=== PATIENT | female | born 1960 | race Caucasian/White ===

== ENCOUNTER 2019-07-20 13:41 | Emergency (ER) | payer MEDICAID, SELFPAY ==
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
[2019-07-20 13:52] VITALS: BP 122/82; PULSE 103; RESP 18; TEMP 37.1; O2SAT 94; BMI 22.8
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
[2019-07-20 14:09] VITALS: RESP 18; O2SAT 93
[2019-07-20] MEDS: morphine 4 mg/mL SDV 1 mL IVP (14:09)
--- NOTE | 2019-07-20 15:45 | PC.NURSE ---
pt ambulated to bathroom with walker assist, pt tolerated fair.
[2019-07-20 16:15] VITALS: BP 158/90; PULSE 72; RESP 17; O2SAT 95
== END 2019-07-20 16:16 | disposition home or self-care (01) ==
PROVIDERS: Emergency Provider Emergency Medicine; Family Provider Family Medicine
DX: S13.4XXA Sprain of ligaments of cervical spine, initial encounter (principal); S29.012A Strain of muscle and tendon of back wall of thorax, initial encounter; V57.5XXA Driver of pick-up truck or van injured in collision with fixed or stationary object in traffic accident, initial encounter; J44.9 Chronic obstructive pulmonary disease, unspecified; E78.5 Hyperlipidemia, unspecified; E11.42 Type 2 diabetes mellitus with diabetic polyneuropathy; Z86.73 Personal history of transient ischemic attack (TIA), and cerebral infarction without residual deficits
CPT/HCPCS: 71046; 72072; 72100; 72170; 96374; 99282; 99284; J2270

== ENCOUNTER 2020-12-11 12:23 | Outpatient (CLI) | payer MEDICAID, SELFPAY ==
--- NOTE | 2020-12-11 12:32 | XRR_ITS ---
PROCEDURE INFORMATION: Exam: XR Abdomen Exam date and time: 12/11/2020 12:32 PM Age: 60 years old Clinical indication: Condition or disease; Kidney or ureter condition; Calculus (stone) in ureter; Prior surgery; Surgery type: Hysterectomy; Additional info: Ureteral stone TECHNIQUE: Imaging protocol: XR of the abdomen. Views: Frontal supine view of the abdomen. 1 View. COMPARISON: CT abdomen pelvis w con* [id number] 12/06/2020 12:05 AM FINDINGS: Gastrointestinal tract: Normal. No bowel dilation. Status post cholecystectomy. Colonic fecal stasis is seen There is a circumscribed density is seen in the projection of the right kidney measuring 11 mm x 5 mm it is unclear if this is within the right kidney or the bowel. Bones/joints: Unremarkable. XR/XR KUB 05597 IMPRESSION: 1. No acute findings. 2. There is significant colonic fecal stasis. 3. Circumscribed right renal stone or density within bowel. 4. Status post cholecystectomy
== END 2020-12-11 12:24 | disposition home or self-care (01) ==
PROVIDERS: PCP Pediatrics; Visit Provider Nurse Practitioner Family
DX: N20.1 Calculus of ureter (principal); Z90.49 Acquired absence of other specified parts of digestive tract
CPT/HCPCS: 74018; 81003

== ENCOUNTER 2020-12-19 15:15 | Outpatient (CLI) | payer MEDICAID, SELFPAY ==
--- NOTE | 2020-12-19 15:18 | XRR_ITS ---
PROCEDURE INFORMATION: Exam: XR Abdomen Exam date and time: 12/19/2020 3:18 PM Age: 60 years old Clinical indication: Condition or disease; Kidney or ureter condition; Calculus (stone) in ureter; Additional info: Ureteral stone left TECHNIQUE: Imaging protocol: XR of the abdomen. Views: Frontal supine view of the abdomen. 1 View. COMPARISON: CR XR KUB 97318 12/11/2020 12:47 PM FINDINGS: Tubes, catheters and devices: Surgical clips related to cholecystectomy are noted the right upper quadrant. Gastrointestinal tract: Nonobstructive intestinal gas pattern demonstrated. Moderate retained stool throughout the colon. Organs: 10 mm right upper quadrant calcification, likely representing a renal calculus. Vasculature: Lower pelvic calcifications are noted, likely representing phleboliths. Bones/joints: Mild scoliosis and degeneration of the lumbar spine. No acute osseous abnormality. XR/XR KUB 01607 IMPRESSION: 1. 10 mm right upper quadrant calcification, likely representing a renal calculus. This is unchanged from 12/11/2020. 2. Moderate retained stool throughout the colon. No acute abnormality demonstrated. 3. There is no interval change from the prior examination.
== END 2020-12-19 15:16 | disposition home or self-care (01) ==
PROVIDERS: PCP Pediatrics; Visit Provider Urology
DX: N20.1 Calculus of ureter (principal)
CPT/HCPCS: 74018; 81003

== ENCOUNTER 2021-04-18 13:34 | Outpatient (CLI) | payer MEDICAID, SELFPAY ==
--- NOTE | 2021-04-18 13:42 | XR_ITS ---
WS: [id number] Exam: XR KUB [id number] Date/Time of Exam: 04/18/2021 1:42 PM Reason For Exam: URETERAL CALCULUS Comparison 12/19/2020. 1 cm calcification superimposes the lower pole the right kidney and may represent a renal stone. This is unchanged in location. No bowel obstruction or free air. Signs of prior cholecystectomy. Moderate amount of stool in the colon. Nonspecific bilateral pelvic calcifications noted. Old bilateral pelvi c fractures. XR/XR KUB 00020 IMPRESSION: 1. 1 cm calcification superimposes the lower pole the right kidney and may repr esent a renal stone. It is unchanged in appearance. 2. No acute abdominal process. Additional nonacute findings as above.
== END 2021-04-18 13:35 | disposition home or self-care (01) ==
LOC: RAD 13:36
PROVIDERS: Visit Provider Urology
DX: N20.1 Calculus of ureter (principal); N20.0 Calculus of kidney
CPT/HCPCS: 74018; 81003; 87086

== ENCOUNTER 2021-05-15 15:13 | Outpatient (CLI) | payer MEDICAID, SELFPAY ==
--- NOTE | 2021-05-15 15:00 | XRR_ITS ---
PROCEDURE INFORMATION: Exam: XR Abdomen Exam date and time: 05/15/2021 3:00 PM Age: 61 years old Clinical indication: Condition or disease; Other: Nephrolithiasis; Prior surgery; Surgery type: Gb TECHNIQUE: Imaging protocol: XR of the abdomen. Views: Frontal supine view of the abdomen. 1 View. COMPARISON: CR XR KUB 10458 04/18/2021 1:54 PM FINDINGS: Gastrointestinal tract: Normal. No bowel dilation. Vasculature: 10 mm calcification overlying the right kidney. No change from prior x-rays. Calcifications in the pelvis are probably phleboliths and are unchanged from prior x-ray. No additional calculi. Bones/joints: Unremarkable. XR/XR KUB 80780 IMPRESSION: 10 mm Right renal calculus unchanged from prior x-ray Radiation Dose CTDIVOL = (mGy): DLP = (mGy-cm)
== END 2021-05-15 15:14 | disposition home or self-care (01) ==
LOC: RAD 15:14
PROVIDERS: PCP Family Medicine; Visit Provider Urology
DX: N20.0 Calculus of kidney (principal)
CPT/HCPCS: 74018; 81003

== ENCOUNTER → 2021-07-17 16:57 | Outpatient (BNVA) | payer MEDICAID, SELFPAY | PROVIDERS: PCP Family Medicine; Visit Provider Urology | DX: N39.41 Urge incontinence (principal); N20.0 Calculus of kidney; R39.198 Other difficulties with micturition; N30.80 Other cystitis without hematuria | CPT/HCPCS: 81003; 87077; 87086; 87184 ==

== ENCOUNTER 2021-10-16 14:35 | Outpatient (CLI) | payer MEDICAID, SELFPAY ==
--- NOTE | 2021-10-16 14:55 | XR_ITS ---
WS: [id number] KUB, AP view, 10/16/2021 Clinical Data: NEPHROLITHIASIS Comparison: KUB, 05/15/2021. Findings: No abnormal intraabdominal masses are seen. There is no dilatated small bowel or evidence of obstruct ion. There is a 1.0 cm calcification to the right of the L2-L3 disc which may be in the right kidney. No left renal calcifications are seen. There are clips in the right upper quadrant from a cholecystec faye. There are phleboliths in the left side of the true pelvis. XR/XR KUB 54654 Impression: Right renal calculus unchanged.
== END 2021-10-16 14:36 | disposition home or self-care (01) ==
LOC: RAD 14:37
PROVIDERS: PCP Family Medicine; Visit Provider Urology
DX: N20.0 Calculus of kidney (principal)
CPT/HCPCS: 74018; 81003

== ENCOUNTER 2021-12-20 08:23 | Emergency (ER) | payer MEDICAID, SELFPAY ==
[2021-12-20 08:29] VITALS: BP 147/91; PULSE 118; RESP 20; TEMP 37.1; O2SAT 98; BMI 24.7
--- NOTE | 2021-12-20 08:56 | CT_ITS ---
WS: [id number] CT ANGIOGRAM CEREBRAL AND CAROTID ARTERIES HISTORY: TIA TECHNIQUE: CT angiogram is performed of the carotid and cerebral arteries. During arterial injection imaging is obtained from the skull vertex to the aortic arch in 1.25 mm imaging. Coronal and sagittal reformats are submitted. Additional multi planar reformats of the carotid and cerebral arteries are submitted, MIP imaging also reviewed. NASCET criteria utilized. All CT scans at [facility] at least one of these dose optimization techniques: automated exposure control; mA and/or kV adjust ment per patient size (includes targeted exams where dose is matched to clinical indication); or iter ative reconstruction. CONTRAST: Omnipaque 350; 85 mL IV. DLP: 1911.49 mGy.cm COMPARISON: None available. Carotid Angiogram: Right carotid: Common carotid artery: Arises normally from the innominate artery. No significant plaque or stenosis. Internal carotid artery: No plaque or stenosis. External carotid artery: Patent. Left carotid: Common carotid artery: Arises normally from the base of the innominate. No significant plaque or sten osis. Internal carotid artery: No plaque or stenosis. External carotid artery: Patent. Right vertebral artery: Unremarkable. Left vertebral artery: Unremarkable. Arises normally from the subclavian artery. Subclavian arteries: No stenosis or significant abnormality. Upper thorax: Mild hyperexpansion. No mass or pneumonia. Thyroid gland: Normal. Osseous structures: Straightening and reversal the normal cervical lordosis. C3 anterolisthesis by 4 mm. Multilevel facet joint arthritis throughout the lumbar cervical spine. Spine CEREBRAL ANGIOGRAM: Intracranial vertebral arteries: Normal with no significant atherosclerosis. Basilar artery: No significant stenosis or occlusion. No aneurysm. Intracranial Internal carotid arteries: Demonstrates no significant stenosis or plaque. Middle cerebral arteries: Normal. Anterior cerebral arteries and ACOM: Normal. Posterior cerebral arteries and PCOM's: Normal. Dominant RIGHT transverse sinus with arachnoid granulations. Small caliber but patent LEFT transverse sinus. Mastoid air cells: Normal. Paranasal sinuses: Normal. Calvarium: Normal. CT/CT angio headneck* [id number]/[id number] IMPRESSION: 1. Normal carotid arteries. 2. Unremarkable [place].
--- NOTE | 2021-12-20 08:56 | ECG_ITS ---
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 Measurements Intervals [place] Rate: 100 P: 55 HI: 126 QRS: 10 QRSD: 88 T: 58 QT: 353 QTc: 455 Interpretive Statements SINUS TACHYCARDIA ABNORMAL RHYTHM ECG Compared to ECG 01/08/2019 18:20:57 T-wave abnormality no longer present Electronically Signed On 12-20-2021 18:55:15 CDT by Harsh Santoyo M.D. [email or web address]
--- NOTE | 2021-12-20 08:56 | CT_ITS ---
WS: [id number] CT HEAD NONCONTRAST HISTORY: TIA/ CVA TECHNIQUE: Contiguous axial imaging performed through the brain in 2.5 mm imaging. Bone and soft tiss ue windows. Sagittal and coronal reformats reviewed. All CT scans at [facility] use at least one of these dose optimization techniques: automated exposure control; mA and/or kV adjustment per pa tient size (includes targeted exams where dose is matched to clinical indication); or iterative recon struction. DLP: 682.77 mGy.cm COMPARISON: 04/12/2016 No acute intracranial hemorrhage, midline shift or mass effect. Mild atrophy. There are patchy areas of decreased attenuation throughout the white matter. There are a few additional areas at the vidal-white matter junction of the lower attenuation. These are noted bi lateral in the frontal and parietal lobes. No prior infarct. Ventricles: Normal size with no hydrocephalus. No inferior displacement of cerebellar tonsils. Paranasal sinuses: As visualized are clear. Mastoid air cells: Well pneumatized. Calvarium and scalp: Skull is intact with no soft tissue edema or swelling. CT/CT head wo con* [id number] IMPRESSION: 1. No acute intracranial hemorrhage or edema. 2. Progression of small vessel ischemic changes. Numerous focal patchy areas o f low signal at the vidal-white matter junction in the frontal and parietal lobe s. Significant progression since 2015. Suggest follow-up MRI brain with and wit hout contrast for further evaluation. This all may be related to advancing smal l vessel ischemic disease. Similar changes can be seen with hypertension, migra linda or demyelinating disease and less likely metastatic disease. Please note t here were no enhancing lesions noted on the CT angiogram performed on 12/20/2021 .
--- NOTE | 2021-12-20 08:56 | XR_ITS ---
WS: [id number] XR chest 1V portable [id number] REASON FOR EXAM: dyspnea/cough FINDINGS: Chest is unchanged compared to 07/20/2019. Moderate tortuosity and ectasia thoracic aorta without aneurysmal dilatation. Normal heart size. No acute pulmonary parenchymal or pleural abnormality. Bilateral old healed rib fractures. Moderate degenerative spondylosis in the mid and lower thoracic s pine. XR/XR chest 1V portable [id number] IMPRESSION: No acute chest abnormality.
--- NOTE | 2021-12-20 09:00 | ED_ITS ---
HPI - Neuro Symptoms/Deficit General: Chief Complaint: Neuro Symptoms/Deficit Stated Complaint: slurring speech, left weakness @ 1 am Time Seen by Provider: 12/20/21 08:32 Source: patient Mode of arrival: ambulatory Limitations: no limitations History of Present Illness: 61-year-old female presents emergency room complaining of slurring of speech generalized weakness. began around 1 AM this morning she reports it comes and goes. During the course of history it varied drastically from being able to answer questions follow commands without any difficulty to being almost unresponsive at times however when I asked her to raise her arms to evaluate for pronator drift she raised both arms slowly was able to hold him still prior to that she had been moving her arms around while talking bilaterally without any restrictions. She is also complaining of chest pain and then near the end of the history taking she states she had been vomiting blood last week she reports to being fairly large amount but otherwise cannot quantify it. She is not on any anticoagulants. Her review of systems was essentially gould positive. Onset (ago): hour(s) Last Observed Normal: 01:00 Location: speech History of same: No Severity: mild Quality: weak Relieving factors: none Exacerbating factors: none Context: sudden onset Associated symptoms: Reports chest pain, headache(s), malaise, nausea, vertigo and vomiting; Deny cough, diaphoresis, fevers/chills, anorexia, seizures, short of breath, syncope, tingling or weakness Treatments Prior to Arrival: none Review of Systems Const: Reports: fatigue and malaise; Denies: fever(s), chills or diaphoresis ENMT: Reports: throat pain Card: Reports: chest pain and palpitations; Denies: edema, swelling of feet/ankles or syncope Resp: Reports: dyspnea, non-productive cough and wheezing GI: Reports: abdominal pain, nausea, vomiting and hematemesis : Denies: flank pain, difficulty voiding, dysuria, urinary frequency or urinary urgency Musc: Reports: neck pain and back pain Neuro: Reports: headache(s), numbness in extremities, weakness in extremities, sensory changes, difficulty walking and vertigo [facility] ED PFSH: Medical History COPD (chronic obstructive pulmonary disease) Cystitis cystica Diabetes Hypercholesterolemia Hyperlipidemia Lung disease Nephrolithiasis Peripheral neuropathy TIA (transient ischemic attack) Ureterolithiasis Urgency incontinence Surgical History History of cholecystectomy History of hysterectomy History of knee surgery Family History Mother Lung cancer Ovarian cancer Father Prostate cancer Stroke Social History Smoking and tobacco status: never smoked Alcohol intake: never Marital status: Current occupational status: disabled NIH stroke score NIHSS: Level Of Consciousness - 1a: 0 Level Of Consciousness Questions - 1b: Both Correct Level Of Consciousness Commands - 1c: Both Correct Best Gaze - 2: Normal Visual Nam - 3: No Visual Loss Facial Palsy - 4: Normal Motor Arm Right - 5: No Drift Motor Arm Left - 5: No Drift Motor Leg Right - 6: No Drift Motor Leg Left - 6: No Drift Limb Ataxia - 7: Absent Sensory - 8: Normal Best Language - 9: No Aphasia Dysarthia - 10: Normal Extinction And Inattention - 11: 0 Score: Total Score: 0 Physical Exam Const: GENERAL APPEARANCE: cooperative and comfortable ORIENTATION/CONSCIOUSNESS: Yes awake, Yes oriented to person, Yes oriented to place and Yes oriented to time HENMT: COMMON NORMALS: normocephalic, atraumatic and hearing grossly normal bilaterally HEAD & SCALP: normocephalic and atraumatic Neck/C-Spine: COMMON NORMALS: no JVD Lymph: LYMPHATIC: no lymphadenopathy noted and no lymphedema noted Resp: COMMON NORMALS: normal respiratory effort, No retractions, No use of accessory muscles and clear to auscultation bilaterally AUSCULTATION: clear to auscultation bilaterally Cardio: COMMON NORMALS: no JVD, regular rate, regular rhythm and No murmurs present (Cardio) RATE: regular rate RHYTHM: regular rhythm GI: COMMON NORMALS: Soft to palpation and No hepatosplenomegaly present AUSCULTATION: Yes normoactive bowel sounds PALPATION: Yes Soft to palpation, No Tenderness to palpation present (GI), No Guarding due to palpation present (GI) and Yes No hepatosplenomegaly present Extremity: COMMON NORMALS: normal to inspection, capillary refill normal, no clubbing, cyanosis or edema, no calf tenderness and no pedal edema Neuro: SENSORIUM/ORIENTATION: Yes oriented to person, Yes oriented to place and Yes oriented to time OTHER: Exam is inconsistent. At 1 point on target patient to use both arms she has full symmetrical use of facial muscles and no alteration in sensation when we start to focus on more specific questions regarding the timing of her symptoms deficit she transitions here arrows. Or open her eyes states she can barely move her arms or legs bilateral but when asked to sit up she is able to reposition herself and pull her self to a full sitting position without any hesitation including use her legs to reposition her within the bed. At the end of history taking she is able to vocalize again without any slurring of words about having vomited blood. Skin: COMMON NORMALS: no rashes or lesions noted GENERAL SKIN EXAM: no rashes or lesions noted Course Vital Signs: Vital signs: Vital Signs Temperature 98.7 F 12/20/21 08:29 Pulse Rate 75 12/20/21 12:46 Respiratory Rate 20 H 12/20/21 12:46 Blood Pressure 104/72 12/20/21 12:46 Pulse Oximetry 95 12/20/21 12:46 MDM - Neuro Symptoms/Deficit Medical Decision Making Her symptoms are all resolved at this point, wax and wane are difficult to really track her score at various times in the same setting she did complete change in symptoms very rapidly. Work-up otherwise negative I am going to start her on aspirin and Plavix we will also put her on statin and set her up for an outpatient MRI and follow-up with neurology Medical Records I reviewed the patient's medical records. Lab Data I reviewed the patient's lab results. : 12/20/21 09:15 12/20/21 09:15 Radiology Impressions Chest X-Ray 12/20/21 08:56 IMPRESSION: No acute chest abnormality. Head CT 12/20/21 08:56 IMPRESSION: 1. No acute intracranial hemorrhage or edema. 2. Progression of small vessel ischemic changes. Numerous focal patchy areas of low signal at the vidal-white matter junction in the frontal and parietal lobes. Significant progression since 2016. Suggest follow-up MRI brain with and without contrast for further evaluation. This all may be related to advancing small vessel ischemic disease. Similar changes can be seen with hypertension, migraines or demyelinating disease and less likely metastatic disease. Please note there were no enhancing lesions noted on the CT angiogram performed on 12/20/2021. Head/Neck CTA 12/20/21 08:56 IMPRESSION: 1. Normal carotid arteries. 2. Unremarkable [place]. Laboratory Results WBC 8.2 10^3/uL (4.0-10.0) 12/20/21 09:15 RBC 4.86 10^6/uL (4.1-5.3) 12/20/21 09:15 Hgb 13.9 g/dL (11.5-15.3) 12/20/21 09:15 Hct 41.7 % (37.0-47.0) 12/20/21 09:15 MCV 85.8 fl (81-99) 12/20/21 09:15 MCH 28.6 pg (28.0-34.0) 12/20/21 09:15 MCHC 33.3 g/dL (30.0-36.0) 12/20/21 09:15 RDW 13.3 % (12.1-15.1) 12/20/21 09:15 Plt Count 295 10^3/cmm (130-400) 12/20/21 09:15 MPV 10.3 fL (7.4-10.4) 12/20/21 09:15 Neut % (Auto) 61.3 % 12/20/21 09:15 Lymph % (Auto) 27.5 % 12/20/21 09:15 Gem % (Auto) 8.8 % 12/20/21 09:15 Eos % (Auto) 1.2 % 12/20/21 09:15 Baso % (Auto) 0.5 % 12/20/21 09:15 Neut # (Auto) 5.00 10^3/uL (1.8-7.7) 12/20/21 09:15 Lymph # (Auto) 2.2 10^3/uL (0.8-4.8) 12/20/21 09:15 Gem # (Auto) 0.7 10^3/uL (0.2-0.9) 12/20/21 09:15 Eos # (Auto) 0.1 10^3/uL (0.0-0.8) 12/20/21 09:15 Baso # (Auto) 0.0 10^3/uL (0.0-0.1) 12/20/21 09:15 Nucleated RBC % (auto) 0 % 12/20/21 09:15 Nucleated RBCs # 0.0 /100WBC 12/20/21 09:15 Sodium 139 mmol/L (136-145) 12/20/21 09:15 Potassium 4.3 mmol/L (3.5-5.1) 12/20/21 09:15 Chloride 99 mmol/L (98-107) 12/20/21 09:15 Carbon Dioxide 25 mmol/L (22-29) 12/20/21 09:15 Anion Gap 19.3 (5-19) H 12/20/21 09:15 BUN 13 mg/dL (8-23) 12/20/21 09:15 Creatinine 0.8 mg/dL (0.5-0.9) 12/20/21 09:15 GFR Calculation 72.9 mL/min (90-130) L 12/20/21 09:15 Glucose 153 mg/dL (65-115) H 12/20/21 09:15 Calculated Osmolality 291 mOsm/kg (285-295) 12/20/21 09:15 Calcium 9.2 mg/dL (8.5-10.5) 12/20/21 09:15 Total Bilirubin 0.6 mg/dL (0.15-1.2) 12/20/21 09:15 AST 23 U/L (0-32) 12/20/21 09:15 ALT 24 U/L (0-33) 12/20/21 09:15 Alkaline Phosphatase 150 IU/L (35-105) H 12/20/21 09:15 Creatine Kinase 98 U/L (26-192) 12/20/21 09:15 Troponin T Baseline 7 ng/L (0-10) 12/20/21 09:15 Troponin T 120 Minute 7.96 ng/L (0-10) 12/20/21 11:18 Delta Troponin T -0.82 ABS# (0-10) L 12/20/21 11:18 Total Protein 7.3 g/dL (6.6-8.7) 12/20/21 09:15 Albumin 4.6 g/dL (3.5-5.2) 12/20/21 09:15 Globulin 2.7 g/dL (1.3-4.6) 12/20/21 09:15 Urine Color Yellow (Yellow) 12/20/21 09:55 Urine Appearance Hazy (CLEAR) A 12/20/21 09:55 Urine pH 6 (5-7) 12/20/21 09:55 Ur Specific Golden 1.015 (1.005-1.030) 12/20/21 09:55 Urine Protein Neg (Negative) 12/20/21 09:55 Urine Glucose (UA) Norm (Normal) 12/20/21 09:55 Urine Ketones Negative (Negative) 12/20/21 09:55 Urine Blood Neg (Negative) 12/20/21 09:55 Urine Nitrate Negative (Negative) 12/20/21 09:55 Urine Bilirubin Neg (Negative) 12/20/21 09:55 Urine Urobilinogen Norm mg/dL (Negative) 12/20/21 09:55 Ur Leukocyte Esterase 1+ (Negative) H 12/20/21 09:55 Urine RBC 0-4 /hpf (0-2) H 12/20/21 09:55 Urine WBC 0-4 /hpf (0-5) H 12/20/21 09:55 Ur Squamous Epith Cells 10-15 /hpf (0-5) H 12/20/21 09:55 Ur Renal Epithelial Cell Associate Vice President 12/20/21 09:55 Amorphous Sediment Not Reportable 12/20/21 09:55 Urine Bacteria 1+ /hpf (NONE) H 12/20/21 09:55 Discharge Plan Discharge Patient Disposition: Home Clinical Impression: Transient cerebral ischemia, Atypical chest pain, HTN (hypertension) Condition: Stable Prescriptions: New atorvastatin 40 mg tablet 40 mg PO DAILY Qty: 30 0RF clopidogrel 75 mg tablet 75 mg PO DAILY Qty: 30 0RF aspirin 81 mg tablet,delayed release (DR/EC) 81 mg PO DAILY Qty: 30 0RF No Action simvastatin 5 mg tablet 5 mg PO DAILY 0RF gabapentin 600 mg tablet 600 mg PO DAILY 0RF omeprazole 10 mg capsule,delayed release(DR/EC) 10 mg PO BID 0RF All Day Allergy (cetirizine) 10 mg capsule 10 mg PO DAILY PRN (Reason: Allergy Symptoms) 0RF budesonide-formoterol [Symbicort] 160-4.5 mcg/actuation HFA aerosol inhaler 2 puff inhalation Q12H 0RF fluticasone propionate 50 mcg/actuation spray,suspension 1 spray intranasal DAILY 0RF Rx Instructions: administer into each nostril glimepiride 4 mg tablet 4 mg PO BID 0RF fenofibrate nanocrystallized 145 mg tablet 145 mg PO DAILY 0RF sertraline 100 mg tablet 100 mg PO DAILY 0RF atenolol 50 mg tablet 25 mg PO DAILY 0RF sulfamethoxazole-trimethoprim 800-160 mg tablet 1 tab PO BID Qty: 60 2RF Rx Instructions: TAKE SMZ/TMP INSTEAD OF CEFUROXIME zolpidem 10 mg tablet 10 mg PO BEDTIME 0RF tamsulosin 0.4 mg capsule 0.4 mg PO DAILY 0RF Discharge Orders: Discharge ED (Routine); Ordered 12/20/21 Ordered By: Bandar Lee Referrals: Pinky Acosta MD [Primary Care Provider] - Discharge Diet: Usual diet Discharge Activity: Increase activity as tolerated Patient Instructions: Opioid Safety Activity Restrictions/Additional Instructions: This management make arrangements for an outpatient MRI with contrast and follow-up with neurology. Take your previously prescribed blood pressure medications regularly. Coding Level of Care Code ED Metrology Manager for Carlos Fwrenetta Exam Comprehensive
[2021-12-20 09:09] VITALS: BP 143/97
[2021-12-20] MEDS: cloNIDine 0.1 mg Tablet PO (09:09)
[2021-12-20 09:20] LABS: Basophils % 0.5 %; Eosinophils # 0.1 10^3/uL (0.0-0.8); Eosinophils % 1.2 %; Hematocrit 41.7 % (37.0-47.0); Hemoglobin 13.9 g/dL (11.5-15.3); Lymphocytes # 2.2 10^3/uL (0.8-4.8); Lymphocytes % 27.5 %; Mean Corpuscular HGB Conc 33.3 g/dL (30.0-36.0); Mean Corpuscular Hemoglobin 28.6 pg (28.0-34.0); Mean Corpuscular Volume 85.8 fl (81-99); Mean Platelet Volume 10.3 fL (7.4-10.4); Monocytes # 0.7 10^3/uL (0.2-0.9); Monocytes % 8.8 %; Neutrophils % 61.3 %; Nucleated Red Blood Cells % 0 %; Platelet Count 295 10^3/cmm (130-400); Red Blood Count 4.86 10^6/uL (4.1-5.3); Red Cell Distribution Width 13.3 % (12.1-15.1); White Blood Count 8.2 10^3/uL (4.0-10.0)
[2021-12-20] MEDS: atenolol 50 mg Tablet PO (09:38)
[2021-12-20 09:42] LABS: Troponin(5th) Baseline 7 ng/L (0-10)
[2021-12-20 09:44] LABS: Alanine Aminotransferase 24 U/L (0-33); Albumin Level 4.6 g/dL (3.5-5.2); Alkaline Phosphatase 150 IU/L (35-105); Anion Gap 19.3 (5-19); Aspartate Amino Transferase 23 U/L (0-32); Blood Urea Nitrogen 13 mg/dL (8-23); Calcium 9.2 mg/dL (8.5-10.5); Carbon Dioxide 25 mmol/L (22-29); Chloride 99 mmol/L (98-107); Creatine Phosphokinase 98 U/L (26-192); Globulin 2.7 g/dL (1.3-4.6); Glomerular Filtration Rate 72.9 mL/min (90-130); Glucose 153 mg/dL (65-115); Osmolality Calculated 291 mOsm/kg (285-295); Potassium 4.3 mmol/L (3.5-5.1); Sodium 139 mmol/L (136-145); Total Bilirubin 0.6 mg/dL (0.15-1.2); Total Protein 7.3 g/dL (6.6-8.7)
[2021-12-20 09:57] VITALS: BP 139/99; PULSE 95; RESP 14; O2SAT 96
[2021-12-20 10:31] LABS: Add Urine Microscopic? YES; Bilirubin Urine Neg (Negative); Blood Urine Neg (Negative); Glucose Urine UA Norm (Normal); Ketones Urine Negative (Negative); Leukocyte Esterase Urine 1+ (Negative); Nitrate Urine Negative (Negative); Protein Urine Neg (Negative); RBC Urine 0-4 /hpf (0-2); Specific Gravity, Urine 1.015 (1.005-1.030); Urine Appearance Hazy (CLEAR); Urine Color Yellow (Yellow); Urobilinogen Urine Norm (Negative); WBC Urine 0-4 /hpf (0-5); pH Urine 6 (5-7)
[2021-12-20 10:42] LABS: Bacteria Urine 1+ /hpf
--- NOTE | 2021-12-20 10:56 | ECG_ITS ---
[facility] Test Date: 2021-12-20 Pat Name: Marilu Adames Department: Room: Gender: Female Wearing Apparel Folder: : 1960 Requested By: Bandar Bird Order Number: [id number] Carmen MD: Harsh Santoyo M.D. Measurements Intervals [place] Rate: 78 P: 55 TN: 144 QRS: 23 QRSD: 86 T: 58 QT: 383 QTc: 438 Interpretive Statements SINUS RHYTHM Compared to ECG 12/20/2021 09:04:21 Sinus tachycardia no longer present Electronically Signed On 12-20-2021 19:00:48 CDT by Harsh Santoyo M.D. [id number]
[2021-12-20 11:40] LABS: Troponin 5 2HR 7.96 ng/L (0-10)
[2021-12-20 11:51] LABS: Troponin 5 2HR Delta -0.82 ABS# (0-10)
[2021-12-20 12:46] VITALS: BP 104/72; PULSE 75; RESP 20; O2SAT 95
--- NOTE | 2021-12-20 13:33 | PC.SOCIAL ---
Addendum entered by Chuyita Salinas 01/16/22 14:26: Patient had a follow up appointment scheduled for 01.14.22 with neurology - patient did attend appointment. Original Note: Neurology Follow-Up Consult received for neurology followup. Message request sent. Clinic to call patient with appointment.
--- NOTE | 2021-12-26 13:26 | DCPLANNER ---
Addendum entered by Chuyita Salinas 03/08/22 14:44: Patient had an outpatient MRI - patient did attend appointment. Original Note: manager trading had message to schedule an outpatient MRI for patient. manager trading faxed signed order to centralized scheduling, who will call patient with appointment information.
== END 2021-12-20 12:47 | disposition home or self-care (01) ==
PROVIDERS: Emergency Provider Family Medicine; PCP Family Medicine
DX: G45.9 Transient cerebral ischemic attack, unspecified (principal); R07.89 Other chest pain; I10 Essential (primary) hypertension; Z79.84 Long term (current) use of oral hypoglycemic drugs; J44.9 Chronic obstructive pulmonary disease, unspecified; E11.9 Type 2 diabetes mellitus without complications; E78.5 Hyperlipidemia, unspecified; Z86.73 Personal history of transient ischemic attack (TIA), and cerebral infarction without residual deficits
CPT/HCPCS: 70450; 70496; 70498; 71045; 80053; 81001; 82550; 84484; 85025; 93005; 99285; Q9967

== ENCOUNTER → 2022-01-14 07:54 | Outpatient (BNVA) | payer MEDICAID, SELFPAY | PROVIDERS: PCP Family Medicine; Visit Provider Specialist | DX: G37.9 Demyelinating disease of central nervous system, unspecified (principal); R93.0 Abnormal findings on diagnostic imaging of skull and head, not elsewhere classified; F81.89 Other developmental disorders of scholastic skills | CPT/HCPCS: 99205 ==

== ENCOUNTER → 2022-01-28 14:47 | Outpatient (BNVA) | payer MEDICAID, SELFPAY | PROVIDERS: PCP Family Medicine; Visit Provider Urology | DX: N30.80 Other cystitis without hematuria (principal); N20.0 Calculus of kidney; R39.198 Other difficulties with micturition; N39.41 Urge incontinence | CPT/HCPCS: 81003; 99213 ==

== ENCOUNTER 2022-02-08 09:38 | Outpatient (CLI) | payer MEDICAID, SELFPAY ==
--- NOTE | 2022-02-08 11:00 | MR_ITS ---
WS: [id number] MRI HEAD WITHOUT CONTRAST TECHNIQUE: Sagittal T1, T2 axial, T2 axial FLAIR, axial and coronal T1 images, axial susceptibility w eighted imaging, axial diffusion weighted images, and coronal T2 images were obtained. CLINICAL INFORMATION: Z09 - Encounter for follow-up examination after completed... COMPARISON: CT December 20, 2021 FINDINGS: No evidence of restricted diffusion to suggest acute ischemia. Ventricular system and basal cisterns are patent. Moderate small vessel changes. Mild parenchymal vol ume loss. Small vessel changes in the castillo. Small vessel changes and parenchymal volume loss appear s omewhat progressed compared to 2016. Normal posterior fossa. Normal vascular flow voids at the skull base. No extra-axial fluid collection s. No evidence of mass or mass effect. Normal posterior nasopharynx. Paranasal sinuses are well aerated. Mastoid air cells well aerated. No hemosiderin on susceptibly mechelle ghted images. Normal optic chiasm and pituitary infundibulum. Moderate symmetric atrophy temporal lobes and hippoca mpal formations. Normal cavernous sinuses and Meckel's cave. MR/MR head wo con* [id number] IMPRESSION: 1. No evidence of restricted diffusion to suggest acute ischemia. 2. Moderate patchy supratentorial white matter changes compatible with small v essel disease in a patient this age. Small vessel changes in the castillo. 3. Mild parenchymal volume loss. Moderate symmetric atrophy temporal lobes and hippocampal formations. 4. No hemosiderin on susceptibly weighted images. 5. No other remarkable findings.
== END 2022-02-08 09:39 | disposition home or self-care (01) ==
LOC: RAD 09:38
PROVIDERS: PCP Family Medicine; Visit Provider Specialist
DX: Z09 Encounter for follow-up examination after completed treatment for conditions other than malignant neoplasm (principal)
CPT/HCPCS: 70551

== ENCOUNTER → 2022-02-21 13:53 | Outpatient (BNVA) | payer MEDICAID, SELFPAY | PROVIDERS: PCP Family Medicine; Visit Provider Internal Medicine Cardiovascular Disease | DX: R07.9 Chest pain, unspecified (principal); Z86.73 Personal history of transient ischemic attack (TIA), and cerebral infarction without residual deficits; I10 Essential (primary) hypertension | CPT/HCPCS: 93005; 99204 ==

== ENCOUNTER → 2022-02-28 11:40 | Outpatient (BNVA) | payer MEDICAID, SELFPAY | PROVIDERS: PCP Family Medicine; Visit Provider Specialist | DX: G37.9 Demyelinating disease of central nervous system, unspecified (principal); Z86.73 Personal history of transient ischemic attack (TIA), and cerebral infarction without residual deficits; E11.42 Type 2 diabetes mellitus with diabetic polyneuropathy; R42 Dizziness and giddiness | CPT/HCPCS: 99214 ==

== ENCOUNTER 2022-03-15 09:43 | Day surgery (SDC) | payer MEDICAID, SELFPAY ==
[2022-03-13 10:28] VITALS: BMI 23.8
[2022-03-15 10:21] VITALS: BP 128/73; PULSE 73; RESP 18; TEMP 36.8; O2SAT 93
--- NOTE | 2022-03-15 10:26 | USCV_ITS ---
Marilu Adames Age: 61 Gender: F : 1960 Exam Date: 03/15/2022 12:40 Ordering Phys: Rodríguez Ceja MD ([email or web address]) Technologist: Manpreet Lynn Exam Location: [facility] [place] Indication: CHEST PAIN BP: / HR: Rhythm: Sinus Technical Quality: Adequate MEASUREMENTS (Male / Female) Normal Values Medications IV propofol, administered by anesthesia service. Complications None Proc. Components The patient was brought to the SWATI examination room in a fasting state after obtaining an informed consent. The SWATI probe was passed into the posterior pharynx , mid-esophagus, distal esophagus, and gastric fundus. SWATI was performed at multiple levels. The patient tolerated the procedure well and there were no complications. FINDINGS Left Ventricle Normal LV size ejection fraction. No significant wall motion normalities. Right Ventricle Normal size ejection fraction with no intracavitary masses. Right Atrium The right atrium is normal in size. Left Atrium No intracavitary masses. LA Appendage Electively of small size and good contractility. No thrombus noted. IA Septum During the saline contrast injection, few bubbles were noticed passed through the e interatrial septum into the left side- suggesting a small patent foramen ovale Mitral Valve Mild mitral valve regurgitation. Aortic Valve Tricuspid aortic valve with no masses or vegetations. Tricuspid Valve Trace tricuspid valve regurgitation. Pulmonic Valve No significant abnormalities were noted. Pericardium No pericardial effusion. Aorta The aortic root, ascending aorta and the arch of the aorta were found to be of normal size .No significant plaques or unstable lesions CONCLUSIONS Normal cardiac chamber sizes within normal left ventricular ejection fraction. Mild mitral and trace of tricuspid regurgitation. Features of a small patent foramen ovale No intracardiac masses/or thrombi. No unstable plaques or lesions in the ascending/arch of the aorta. Dr Rodríguez Ceja MD [facility] (Electronically Signed) Final Date: 16 March 2022 09:43 S
[2022-03-15] MEDS: sodium chloride 0.9% 1,000 ML 30 ML IV (10:29)
--- NOTE | 2022-03-15 11:01 | ANES.PREANE2 ---
Pre-Anesthetic Assessment Height/Weight: Height 1.57 m Weight 58.967 kg Temp Pulse Resp BP Pulse Ox O2 Del Method 98.2 F 73 18 128/73 93 03/15/22 10:03/15/22 10:03/15/22 10:03/15/22 10:03/15/22 10:03/15/22 10: Operation Date: 03/15/22 12:00 Proposed Procedures p SWATI 66431,CVA I63.9(Not Applicable) - Rodríguez Ceja MD Familial anesthetic complications: None Was Beta Rj taken within 24 hours: N/A Was Clonidine taken within 24 hours: N/A Last intake: Intake Last Liquid Date 03/14/22 Last Liquid Time 23:00 Last Solid Date 03/14/22 Last Solid Time 22:00 Social No alcohol and No tobacco Exam alert, oriented x 3, clear to auscultation bilaterally and regular rate & rhythm Airway Mallampati: Class I Dentition: other (no teeth) Pulmonary Chronic Obstructive Pulmonary Disease CV/HEM Hypertension Metabolic Diabetes Mellitus and Hyperlipidemia Neuropsych Cerebrovascular Accident Anesthetic Plan ASA status: 4 Anesthesia: General and MAC Risk of > 500 ml blood loss (7ml/kg in children): No Medications/Allergies Home Medications Medication Instructions Recorded Confirmed Last Taken Type budesonide-formoterol HFA 160 2 puff inhalation Q12H 12/11/20 03/13/22 03/14/22 History mcg-4.5 mcg/actuation aerosol inhaler (Symbicort) cetirizine 10 mg capsule (All Day 10 mg PO DAILY PRN Allergy Symptoms 12/11/20 03/13/22 03/14/22 History Allergy (cetirizine)) fenofibrate nanocrystallized 145 145 mg PO DAILY 12/11/20 03/13/22 03/14/22 History mg tablet fluticasone propionate 50 1 spray intranasal DAILY 12/11/20 03/13/22 03/14/22 History mcg/actuation nasal spray,suspension glimepiride 4 mg tablet 4 mg PO BID 12/11/20 03/13/22 03/14/22 History omeprazole 10 mg capsule,delayed 10 mg PO BID 12/11/20 03/13/22 03/14/22 History release atenolol 50 mg tablet 25 mg PO DAILY 10/16/21 03/13/22 03/14/22 History gabapentin 600 mg tablet 600 mg PO DAILY 10/16/21 03/13/22 03/14/22 History aspirin 81 mg tablet,delayed 81 mg PO DAILY #30 tabs 12/20/21 03/13/22 03/14/22 Rx release tamsulosin 0.4 mg capsule 0.4 mg PO DAILY 12/20/21 03/13/22 03/14/22 History zolpidem 10 mg tablet 10 mg PO BEDTIME 12/20/21 03/13/22 03/14/22 History atorvastatin 40 mg tablet 40 mg PO DAILY #30 tabs 01/14/22 03/13/22 03/14/22 Rx methenamine hippurate 1 gram tablet 1 g PO BID #60 tabs 01/28/22 03/13/22 03/14/22 Rx fluoxetine 20 mg capsule 20 mg PO DAILY 02/21/22 03/13/22 03/14/22 History methocarbamol 500 mg tablet 500 mg PO QID PRN unknown 02/21/22 03/13/22 03/14/22 History pantoprazole 40 mg tablet,delayed 40 mg PO DAILY 02/21/22 03/13/22 03/14/22 History release Allergies Allergy/AdvReac Type Severity Reaction Status Date / Time codeine Allergy UNKNOWN Verified 02/21/22 09:23 hydrocodone Allergy ADR-Nausea Verified 02/21/22 09:23 prochlorperazine Allergy ADR-Nausea Verified 02/21/22 09:23 [From Compazine] Current Medications Generic Name Dose Route Start Last Admin Trade Name Freq PRN Reason Stop Dose Admin Sodium Chloride 1,000 mls @ 30 mls/hr 03/15/22 10:00 03/15/22 10:29 Sodium Chloride 0.9% IV 03/16/22 09:59 30 mls/hr .Q24H STEPHON Administration PFSH Anesthesia Medical History COPD (chronic obstructive pulmonary disease) Cystitis cystica Diabetes Hypercholesterolemia Hyperlipidemia Lung disease Nephrolithiasis Peripheral neuropathy TIA (transient ischemic attack) Ureterolithiasis Urgency incontinence Surgical History History of cholecystectomy History of hysterectomy History of knee surgery Family History Mother Lung cancer Ovarian cancer Cancer Lung disease Father Prostate cancer Stroke Anesthesia complication CAD (coronary artery disease) Lung cancer Family/Other CAD (coronary artery disease), Onset Age: 40 Dementia Diabetes Suicide Daughter Cancer Denies family history of Clotting disorder Chronic kidney disease (CKD) Bleeding disorder Social History Smoking and tobacco status: never smoked Alcohol intake: never Marital status: Current occupational status: disabled History of recent travel: No Data Anesthesia Cardiac Studies: No Data to Display
[2022-03-15 13:08] VITALS: BP 89/56; PULSE 77; RESP 14; TEMP 36.4; O2SAT 97
[2022-03-15 13:18] VITALS: BP 103/65; PULSE 79; RESP 18; O2SAT 98
--- NOTE | 2022-03-15 13:38 | ANE.PACU2 ---
Inpatient post-anesthesia follow up: Airway intact: Yes Vital signs: Temperature 97.5 F Pulse Rate 79 Respiratory Rate 18 Blood Pressure 103/65 Pulse Oximetry 98 Oxygen Delivery Me thod Room Air Oxygen Flow Rate 5 Fraction of Inspir ed Oxygen Hydration adequate: Yes Nausea and vomiting: No Pain level: 1 Mental status: Baseline
== END 2022-03-15 13:50 | disposition home or self-care (01) ==
PROVIDERS: PCP Family Medicine; Visit Provider Internal Medicine Cardiovascular Disease
PROC: (CPT 93312; principal; 2022-03-15 12:00)
DX: R07.9 Chest pain, unspecified (principal); J44.9 Chronic obstructive pulmonary disease, unspecified; I10 Essential (primary) hypertension; E11.9 Type 2 diabetes mellitus without complications; E78.5 Hyperlipidemia, unspecified; Z86.73 Personal history of transient ischemic attack (TIA), and cerebral infarction without residual deficits; E78.00 Pure hypercholesterolemia, unspecified
CPT/HCPCS: 93312; 93320; 93325; J2704; J7030

== ENCOUNTER → 2022-05-30 13:03 | Outpatient (BNVA) | payer MEDICAID, SELFPAY | PROVIDERS: PCP Family Medicine; Visit Provider Internal Medicine Cardiovascular Disease | DX: I63.9 Cerebral infarction, unspecified (principal); R07.9 Chest pain, unspecified; Q21.12 Patent foramen ovale; R00.2 Palpitations; E78.5 Hyperlipidemia, unspecified; E11.9 Type 2 diabetes mellitus without complications; Z79.84 Long term (current) use of oral hypoglycemic drugs; I10 Essential (primary) hypertension; R55 Syncope and collapse | CPT/HCPCS: 93005; 93270; 99214 ==

== ENCOUNTER 2022-06-03 07:31 | Outpatient (CLI) | payer MEDICAID, SELFPAY ==
--- NOTE | 2022-06-03 | ECG_ITS ---
[facility] Test Date: 2022-06-03 Pat Name: Marilu Adames Department: Room: Gender: Female Fitness Teacher: : 1960 Requested By: Rodríguez Ceja Order Number: [id number] Carmen MD: Rodríguez Ceja M.D. Interpretive Statements NAME OF STUDY: LEXISCAN SESTAMIBI STRESS TEST INDICATION: Chest Pain, PROCEDURE: At the baseline, the EKG revealed normal sinus rhythm with a normal ST Ts. The baseline heart was 69 bpm with a blood pressue of 155/99 mm of Hg Lexiscan was infused over a period of 20 seconds. A total of 0.4 milligrams of Lexiscan was infused. The stress phase was continued for a total of 5 minutes. Heart rate at the end of the stress phase was 82 bpm with a blood pressure 143/89 mm of Hg. The EKG at the peak infusion revealed no significant changes. Sestamibi was injected 20 seconds after the Lexiscan infusion. Heart rate at the end of the recovery phase was 88 bpm with a blood pressure of 144/89 mm of Hg. CONCLUSION: 1. No significant EKG changes with the LexiScan infusion 2. No LexiScan induced chest pain or cardiac arrhythmia 3. Normal blood pressure and heart rate response 4. Sestamibi/sestamibi perfusion scan pending; see separate report. Electronically Signed On 06-07-2022 16:17:32 CLEARANCE REPRESENTATIVE by Rodríguez Ceja M.D. [id number]
--- NOTE | 2022-06-03 07:46 | NMCV_ITS ---
NM julian perf SPECT r/s* [id number] Marilu Adames Age: 62 Gender: F : 1960 Exam Date: 06/03/2022 07:46 Ordering Phys: Rodríguez Ceja MD ([email or web address]) Technologist: ALICIA Moyer Exam Location: [facility] Indications: Coronary angioplasty status STRESS TEST Please see separate stress test report in [facility] for full findings IMAGE PROTOCOL Rest/Stress 1 Lexiscan Day Radiopharmaceutical Dose (mCi) Administration Site Administered by Rest: Tc-99m 10.6 IV ALICIA Moyer Sestamibi Stress:Tc-99m 32.8 IV ALICIA Moyer Sestamimaya Rest: 03-Jun-2022 60 Discovery 630 Stress: 03-Jun-2022 60 Discovery 630 0.4mg Lexiscan. Images obtained in supine and prone position. SPECT RESULTS Technical Quality: Good Raw Data Analysis: Normal Image Corrections: No attenuation or motion correction applied Summed Stress Score: 0 Summed Rest Score: 1 Summed Difference Score: 0 PERFUSION FINDINGS Small area of slightly decreased tracer uptake was noted in the mid inferolateral region, with no significant reversibility. FUNCTIONAL RESULTS (calculated via Gated SPECT) Stress Image LV EF (%): 81 Stress EDV (mL):58 TID: 1 Stress ESV (mL):11 FUNCTIONAL FINDINGS: Segmental wall motion analysis revealing no gross wall motion abnormalities. IMPRESSIONS 1. Myocardial perfusion imaging revealing a small area of persistent decreased tracer uptake in the mid inferolateral region, most likely represent attenuation artifact. 2. Normal LV ejection fraction of 81%. 3. LV wall motion analysis revealing no gross wall motion abnormalities. 4. Normal LV volume. Low probability for coronary ischemia, based on the above findings Dr Rodríguez Ceja MD [facility] (Electronically Signed) Final Date: 03 June 2022 15:49 S
[2022-06-03 08:00] VITALS: BMI 24.7
[2022-06-03] MEDS: regadenoson 0.4 Mg/5 ml Syringe IVP (09:18)
[2022-06-03 09:22] VITALS: BP 142/90; PULSE 84
== END 2022-06-03 07:32 | disposition home or self-care (01) ==
LOC: CDL 07:31
PROVIDERS: PCP Family Medicine; Visit Provider Internal Medicine Cardiovascular Disease
DX: Z98.61 Coronary angioplasty status (principal)
CPT/HCPCS: 36415; 78452; 93017; 96374; A9500; J2785

== ENCOUNTER 2022-09-19 11:50 | Outpatient (CLI) | payer MEDICAID, SELFPAY ==
--- NOTE | 2022-09-19 12:02 | XR_ITS ---
WS: [id number] Exam: XR [id number] Date/Time of Exam: 09/19/2022 12:13 PM Reason For Exam: Nephrolithiasis Comparison 10/16/2021. No bowel obstruction or free air. A 15 mm calcification superimposes the right kidney apparently repr esents a known kidney stone. Signs of prior cholecystectomy. No sign of organ enlargement. Nonspecifi c pelvic calcifications. Bony structures are intact. XR/XR KUB [id number] IMPRESSION: 1. No acute abdominal process. 2. 15 mm calcification seen over the lower pole the right kidney apparently rep resenting a known kidney stone.
== END 2022-09-19 11:51 | disposition home or self-care (01) ==
LOC: RAD 11:53
PROVIDERS: PCP Family Medicine; Visit Provider Urology
DX: N20.0 Calculus of kidney (principal); N30.80 Other cystitis without hematuria; R39.198 Other difficulties with micturition
CPT/HCPCS: 74018; 81003; 99213

== ENCOUNTER 2022-10-21 12:46 | Outpatient (CLI) | payer MEDICAID, SELFPAY ==
--- NOTE | 2022-10-21 13:15 | USCV_ITS ---
Marilu Adames Age: 62 Gender: F : 1960 Exam Date: 10/21/2022 13:08 Ordering Phys: Rodríguez Ceja MD ([email or web address]) Technologist: Kwabena Bal [place] [facility] [place]: [place] swelling PROCEDURES: Venous duplex imaging was performed in bilateral lower extremities. The following venous structures were evaluated: common femoral vein, profunda vein, proximal portion of the greater saphenous vein, superficial femoral vein, and the popliteal vein. In addition, the posterior tibial and peroneal trunk were evaluated. Serial compression, augmentation maneuvers, and spectral Doppler flow evaluation were performed. FINDINGS: Normal 2-D Doppler and augmentation and compressibility throughout the lower extremity venous structures. Additional imaging through the proximal calf veins also reveals no thrombus. Limited evaluation of the greater saphenous vein is patent with no thrombus. CONCLUSIONS No DVT bilateral lower extremities. Dr. Carrie Rico DO (Electronically Signed) Final Date: 21 Oct 2022 16:28 S
== END 2022-10-21 12:47 | disposition home or self-care (01) ==
PROVIDERS: PCP Family Medicine; Visit Provider Internal Medicine Cardiovascular Disease
DX: M79.89 Other specified soft tissue disorders (principal); R06.02 Shortness of breath; E78.5 Hyperlipidemia, unspecified; E11.9 Type 2 diabetes mellitus without complications; I10 Essential (primary) hypertension; Q21.12 Patent foramen ovale
CPT/HCPCS: 36415; 80048; 83880; 85378; 93970; 99214

== ENCOUNTER → 2022-11-08 12:40 | Outpatient (BNVA) | payer MEDICAID, SELFPAY | PROVIDERS: PCP Family Medicine; Visit Provider Internal Medicine Pulmonary Disease | DX: R06.02 Shortness of breath (principal); M25.641 Stiffness of right hand, not elsewhere classified; M25.642 Stiffness of left hand, not elsewhere classified; J44.9 Chronic obstructive pulmonary disease, unspecified | CPT/HCPCS: 36415; 82785; 85025; 85651; 86003; 86038; 86140; 86200; 86235; 86431; 99204 ==

== ENCOUNTER 2023-08-21 13:30 | Observation (INO) | payer MEDICAID, SELFPAY ==
[2023-08-21] VITALS (9 sets, daily range): BP systolic 112–149; BP diastolic 57–93; PULSE 101–140; RESP 14–18; TEMP 36.5–36.7; O2SAT 95–98; BMI 25.4
--- NOTE | 2023-08-21 13:40 | ECG_ITS ---
[facility] Test Date: 2023-08-21 Pat Name: Marilu Adames Department: Room: Gender: Female Parole Board Member: : 1960 Requested By: Markos Marcus Order Number: [id number] Morales MD: Rodríguez Ceja M.D. Measurements Intervals Blanch Rate: 133 P: 49 AL: 116 QRS: 1 QRSD: 88 T: 67 QT: 332 QTc: 494 Interpretive Statements SINUS TACHYCARDIA WITH SHORT AL INTERVAL NONSPECIFIC ST & T-WAVE ABNORMALITY ABNORMAL RHYTHM ECG Compared to ECG 12/20/2021 10:48:58 Short AL interval now present T-wave abnormality now present Sinus rhythm no longer present Electronically Signed On 08-21-2023 21:09:06 LOCKER ATTENDANT by Rodríguez Ceja M.D. [id number]
--- NOTE | 2023-08-21 14:00 | ED_ITS ---
HPI - Abdominal Pain 2 General: Chief Complaint: Abdominal Pain Stated Complaint: sent over by helen oreillyolored vomit Time Seen by Provider: 08/21/23 13:51 Source: patient Mode of arrival: ambulatory Limitations: no limitations History of Present Illness: 63-year-old female states been having ab dominal pain along with nausea vomiting for the last 7 days. She states that she has had coffee-ground emesis she denies any fevers denies any lightheadedness she denies any diarrhea she denies any worsening proving factors. No history of GI bleeds. Associated Symptoms: Reports coffee ground emesis, nausea and vomiting; Denies chills, diarrhea, dysuria and fever(s) Review of Systems 2 Const: Denies: fever(s), chills, body aches or change in appetite ENMT: Denies: throat pain or dental pain Card: Denies: chest pain Resp: Denies: dyspnea GI: Reports: abdominal pain, nausea, vomiting and coffee ground emesis; Denies: diarrhea : Denies: dysuria Musc: Denies: neck pain or back pain Skin/Breast: Denies: rash Neuro: Denies: headache(s) PFSH ED 2 PFSH: Medical History COPD (chronic obstructive pulmonary disease) Cystitis cystica Diabetes Hypercholesterolemia Hyperlipidemia Lung disease Nephrolithiasis Peripheral neuropathy TIA (transient ischemic attack) Ureterolithiasis Urgency incontinence Surgical History History of knee surgery History of hysterectomy History of cholecystectomy Family History Mother Lung cancer Ovarian cancer Cancer Lung disease Father Prostate cancer Stroke Anesthesia complication CAD (coronary artery disease) Lung cancer Family/Other CAD (coronary artery disease), Onset Age: 40 Dementia Diabetes Suicide Daughter Cancer Denies family history of Clotting disorder Chronic kidney disease (CKD) Bleeding disorder Social History Smoking and tobacco/nicotine status: never used tobacco/nicotine Alcohol intake: never Substance/Drug Use: never Marital status: Current occupational status: disabled Physical Exam 2 Const: COMMON NORMALS: no acute distress, patient oriented x3 and healthy appearing HENMT: COMMON NORMALS: normocephalic and atraumatic HEAD & SCALP: n ormocephalic and atraumatic Neck/C-Spine: COMMON NORMALS: full ROM and supple Chest: COMMONS NORMALS: normal inspection of the chest Resp: COMMON NORMALS: normal respiratory effort, No retractions, No use of accessory muscles and clear to auscultation bilaterally AUSCULTATION: clear to auscultation bilaterally Cardio: COMMON NORMALS: regular rate, regular rhythm and No murmurs present (Cardio) RATE: regular rate RHYTHM: regular rhythm GI: COMMON NORMALS: Normal to inspection, nondistended, normoactive bowel sounds present, Soft to palpation, non-tender and no masses PALPATION: Yes Soft to palpation RECTAL EXAM: visual inspection normal, normal sphincter tone and No heme positive stool Extremity: COMMON NORMALS: normal to inspection and full ROM Neuro: COMMON NORMALS: patient oriented x3, moves all extremities and no focal motor deficits Psych: COMMON NORMALS: mental status grossly normal, Normal thought process present and cooperative THOUGHT PROCESS: Normal thought process present Skin: COMMON NORMALS: no rashes or lesions noted and no wounds GENERAL SKIN EXAM: no rashes or lesions noted Course 2 Vital Signs: Vital signs: Vital Signs Temperature 97.7 F 08/21/23 13:35 Pulse Rate 111 H 08/21/23 17:30 Respiratory Rate 16 08/21/23 16:45 Blood Pressure 112/64 08/21/23 17:30 Pulse Oximetry 95 08/21/23 17:30 Oxygen Delivery Me thod Room Air 08/21/23 13:35 MDM - Abdominal Pain Medical Decision Making Patient presents with hematemesis she has had 2 episodes of vomiting here she is no signs of anemia her hemoglobin is normal she does have an esophagitis on CT it could be causing her hematemesis I spoke to the hospitalist will start on Protonix and admit for observation. Medical Records I reviewed the patient's medical records. Lab Data I reviewed the patient's lab results. 08/21/23 14:20 08/21/23 14:10 Labs/Radiology: Radiology Impressions Abdomen/Pelvis CT 08/21/23 14:03 IMPRESSION: 1. Findings consistent with acute esophagitis 2. Right renal pelvis stone Laboratory Results WBC 19.50 10^3/uL (3.29-11.43) H 08/21/23 14:20 RBC 5.43 10^6/uL (3.85-5.65) 08/21/23 14:20 Hgb 15.00 g/dL (11.27-16.99) 08/21/23 14:20 Hct 46.6 % (36-47) 08/21/23 14:20 MCV 85.8 fl (85-98) 08/21/23 14:20 MCH 27.6 pg (27-33) 08/21/23 14:20 MCHC 32.2 g/dL (30-55) 08/21/23 14:20 RDW 13.8 % (12.1-15.1) 08/21/23 14:20 Plt Count 242 10^3/cmm (157-399) 08/21/23 14:20 MPV 12.0 fL (7.4-10.4) H 08/21/23 14:20 Neut % (Auto) 76.4 % 08/21/23 14:20 Lymph % (Auto) 15.8 % 08/21/23 14:20 [place] % (Auto) 6.6 % 08/21/23 14:20 Eos % (Auto) 0.3 % 08/21/23 14:20 Baso % (Auto) 0.3 % 08/21/23 14:20 Neut # (Auto) 14.91 10^3/uL (1.8-7.7) H 08/21/23 14:20 Lymph # (Auto) 3.1 10^3/uL (0.8-4.8) 08/21/23 14:20 [place] # (Auto) 1.3 10^3/uL (0.2-0.9) H 08/21/23 14:20 Eos # (Auto) 0.1 10^3/uL (0.0-0.8) 08/21/23 14:20 Baso # (Auto) 0.1 10^3/uL (0.0-0.1) 08/21/23 14:20 Nucleated RBC % (auto) 0 % 08/21/23 14:20 Nucleated RBCs # 0.0 /100WBC 08/21/23 14:20 PT 13.00 SECONDS (12.1-14.9) 08/21/23 14:20 INR 0.96 (0.8-1.2) 08/21/23 14:20 Sodium Cancelled 08/21/23 14:20 Potassium Cancelled 08/21/23 14:20 Chloride Cancelled 08/21/23 14:20 Carbon Dioxide Cancelled 08/21/23 14:20 Anion Gap Cancelled 08/21/23 14:20 BUN Cancelled 08/21/23 14:20 Creatinine Cancelled 08/21/23 14:20 GFR Calculation Cancelled 08/21/23 14:20 Glucose Cancelled 08/21/23 14:20 Calculated Osmolality Cancelled 08/21/23 14:20 Calcium Cancelled 08/21/23 14:20 Total Bilirubin Cancelled 08/21/23 14:20 AST Cancelled 08/21/23 14:20 ALT Cancelled 08/21/23 14:20 Alkaline Phosphatase Cancelled 08/21/23 14:20 Total Protein Cancelled 08/21/23 14:20 Albumin Cancelled 08/21/23 14:20 Globulin Cancelled 08/21/23 14:20 Lipase Cancelled 08/21/23 14:20 Urine Color Yellow (Yellow) 08/21/23 14:30 Urine Appearance Sl hazy (CLEAR) A 08/21/23 14:30 Urine pH 5 (5-7) 08/21/23 14:30 Ur Specific [place] 1.025 (1.005-1.030) 08/21/23 14:30 Urine Protein 1+ (Negative) H 08/21/23 14:30 Urine Glucose (UA) Norm (Normal) 08/21/23 14:30 Urine Ketones 1+ (Negative) H 08/21/23 14:30 Urine Blood Trace (Negative) H 08/21/23 14:30 Urine Nitrate Negative (Negative) 08/21/23 14:30 Urine Bilirubin Neg (Negative) 08/21/23 14:30 Urine Urobilinogen Norm mg/dL (Negative) 08/21/23 14:30 Ur Leukocyte Esterase Trace (Negative) H 08/21/23 14:30 Urine RBC 0-4 /hpf (0-2) H 08/21/23 14:30 Urine WBC 0-4 /hpf (0-5) H 08/21/23 14:30 Ur Squamous Epith Cells 0-4 /hpf (0-5) H 08/21/23 14:30 Amorphous Sediment Not Reportable 08/21/23 14:30 Urine Bacteria Trace /hpf (NONE) 08/21/23 14:30 Urine Mucus Trace /hpf 08/21/23 14:30 Gastric Occult Blood Positive (Negative) H 08/21/23 16:27 All radiology interpretation(s) finalized by discharge EKG Data EKG 1: I personally reviewed and interpreted this EKG as follows: EKG interpretation date: 08/21/23 EKG interpretation time: 13:40 Interpretation: sinus tach hr [address] or t wave abnormalities qrs 88 qtc 410 Discharge Plan Discharge Patient Disposition: Admitted As Inpatient Clinical Impression: Hematemesis, Esophagitis Condition: Stable Prescriptions: No Action gabapentin 600 mg tablet 600 mg PO DAILY PRN (Reason: NERVE PAIN) All Day Allergy (cetirizine) 10 mg capsule 10 mg PO DAILY PRN (Reason: Allergy Symptoms) budesonide-formoterol [Symbicort] 160-4.5 mcg/actuation HFA aerosol inhaler 2 puff inhalation Q12H fluticasone propionate 50 mcg/actuation spray,suspension 1 spray intranasal DAILY Rx Instructions: administer into each nostril glimepiride 4 mg tablet 4 mg PO BID atenolol 50 mg tablet 25 mg PO DAILY fluoxetine 20 mg capsule 20 mg PO DAILY pantoprazole 40 mg tablet,delayed release (DR/EC) 40 mg PO DAILY methenamine hippurate 1 gram tablet 1 g PO BID Qty: 60 12RF Rx Instructions: Take 1000 mg of vitamin C with each dose of methenamine amlodipine 2.5 mg tablet 2.5 mg PO DAILY 30 Days Qty: 30 5RF latanoprost 0.005 % drops 1 drp ophthalmic (eye) BEDTIME Vitamin C 1,000 mg Tablet 1,000 mg PO BID brimonidine 0.2 % drops 1 drp ophthalmic (eye) BID dorzolamide-timolol 22.3-6.8 mg/mL drops 1 drp ophthalmic (eye) BID Ventolin HFA 90 mcg/actuation HFA aerosol inhaler 2 inh INHALATION Q4H PRN (Reason: Shortness Of Breath) atorvastatin 40 mg tablet 40 mg PO QPM tamsulosin 0.4 mg capsule 0.4 mg PO DAILY zolpidem 10 mg tablet 10 mg PO BEDTIME Referrals: Oscar Bell [Primary Care Provider] - Coding Level of Care Code ED Caving Guide for Chg Aishwarya
--- NOTE | 2023-08-21 14:03 | CTR_ITS ---
PROCEDURE INFORMATION: Exam: CT Abdomen And Pelvis With Contrast Exam date and time: 08/21/2023 4:31 PM Age: 63 years old Clinical indication: Abdominal pain; Generalized; Prior surgery; Surgery date: 6+ months; Surgery type: Piedad, hyst; Additional info: Abd pain TECHNIQUE: Imaging protocol: Computed tomography of the abdomen and pelvis with contrast. Radiation optimization: All CT scans at this facility use at least one of these dose optimization techniques: automated exposure control; mA and/or kV adjustment per patient size (includes targeted exams where dose is matched to clinical indication); or iterative reconstruction. Contrast material: OMNI 350; Contrast volume: 100 ml; Contrast route: INTRAVENOUS (IV); COMPARISON: CT abdomen pelvis w con* [id number] 12/06/2020 12:05 AM RADIATION DOSE METRICS: Total DLP (mGy-cm): 510 FINDINGS: Lungs: Lung bases are clear. No pleural effusion. Mediastinal space: There is abnormal inflammation involving the wall of the distal esophagus. Liver: Normal. No mass. Gallbladder and bile ducts: The gallbladder has been resected. Pancreas: Normal. No ductal dilation. Spleen: Normal. No splenomegaly. Adrenal glands: Normal. No mass. Kidneys and ureters: There is a 1 cm stone lying in the right renal pelvis but I see no ureteral stone or dilatation. Stomach and bowel: Unremarkable. No obstruction. No mucosal thickening. Appendix: No evidence of appendicitis. Intraperitoneal space: Unremarkable. No free air. No significant fluid collection. Vasculature: Unremarkable. No abdominal aortic aneurysm. Lymph nodes: Unremarkable. No enlarged lymph nodes. Urinary bladder: Unremarkable as visualized. Reproductive: Unremarkable as visualized. Bones/joints: Unremarkable. No acute fracture. Soft tissues: Unremarkable. CT/CT abdomen pelvis w con* [id number] IMPRESSION: 1. Findings consistent with acute esophagitis 2. Right renal pelvis stone
[2023-08-21] MEDS: sodium chloride 0.9% 1,000 ML 999 ML IV (14:24)
[2023-08-21] MEDS: ondansetron 2 mg/ML SDV 2 mL 4 MG IVP ×2 (14:25→20:27)
[2023-08-21 14:42] LABS: Basophils # 0.1 10^3/uL (0.0-0.1); Basophils % 0.3 %; Eosinophils # 0.1 10^3/uL (0.0-0.8); Eosinophils % 0.3 %; Hematocrit 46.6 % (36-47); Lymphocytes # 3.1 10^3/uL (0.8-4.8); Lymphocytes % 15.8 %; Mean Corpuscular HGB Conc 32.2 g/dL (30-55); Mean Corpuscular Hemoglobin 27.6 pg (27-33); Mean Corpuscular Volume 85.8 fl (85-98); Monocytes # 1.3 10^3/uL (0.2-0.9); Monocytes % 6.6 %; Neutrophils # 14.91 10^3/uL (1.8-7.7); Neutrophils % 76.4 %; Nucleated Red Blood Cells % 0 %; Platelet Count 242 10^3/cmm (157-399); Red Blood Count 5.43 10^6/uL (3.85-5.65); Red Cell Distribution Width 13.8 % (12.1-15.1)
[2023-08-21 15:03] LABS: INR 0.96 (0.8-1.2)
[2023-08-21 15:06] LABS: Add Urine Microscopic? YES; Bilirubin Urine Neg (Negative); Blood Urine Trace (Negative); Glucose Urine UA Norm (Normal); Ketones Urine 1+ (Negative); Leukocyte Esterase Urine Trace (Negative); Nitrate Urine Negative (Negative); Protein Urine 1+ (Negative); Specific Gravity, Urine 1.025 (1.005-1.030); Urine Appearance SL Hazy (CLEAR); Urine Color Yellow (Yellow); Urobilinogen Urine Norm (Negative); pH Urine 5 (5-7)
[2023-08-21 15:07] LABS: Bacteria Urine TRACE /hpf; Mucus Urine TRACE /hpf; RBC Urine 0-4 /hpf (0-2); Squamous Epithelial Cell Urine 0-4 /hpf (0-5); WBC Urine 0-4 /hpf (0-5)
[2023-08-21 15:08] LABS: Add Urine Culture? No
[2023-08-21 15:41] LABS: Alanine Aminotransferase 22 U/L (0-33); Albumin Level 3.9 g/dL (3.5-5.2); Alkaline Phosphatase 134 U/L (35-105); Anion Gap 16.9 (5-19); Aspartate Amino Transferase 21 U/L (0-32); Blood Urea Nitrogen 14 mg/dL (8-23); Calcium 9.5 mg/dL (8.5-10.5); Carbon Dioxide 29 mmol/L (22-29); Chloride 99 mmol/L (98-107); Creatinine Clr Calc Pharmacy 71.5514; Globulin 2.6 g/dL (1.3-4.6); Glomerular Filtration Rate 84.5 mL/min (90-130); Glucose 191 mg/dL (65-115); Lipase 26 U/L (13-60); Osmolality Calculated 298 mOsm/kg (285-295); Potassium 3.9 mmol/L (3.5-5.1); Sodium 141 mmol/L (136-145); Total Bilirubin 0.6 mg/dL (0.15-1.2); Total Protein 6.5 g/dL (6.6-8.7)
[2023-08-21] MEDS: iohexol 350 mg/mL 500 mL Btl (per mL) IV (16:34)
[2023-08-21 16:35] LABS: Gastricult Occult Blood Positive (Negative)
[2023-08-21] MEDS: metoclopramide 5 mg/mL SDV 2 mL IVP (16:46)
[2023-08-21] MEDS: diphenhydrAMINE 50 mg/mL SDV 1mL 25 MG IVP (16:47)
[2023-08-21] MEDS: pantoprazole 40 mg SDV 80 MG IVP (17:53)
--- NOTE | 2023-08-21 18:26 | P.HP_ITS ---
Providers/Chief Complaint 2 Primary Care Provider: Oscar Bell Chief Complaint: sent over by , discolored vomit History of Present Illness Marilu Adames is a 63 year old female who presented to hospital with chief complaint of 2 to 3-day history of nausea and vomiting. Patient has had recurrent episode initially she was noticing food and bile and then she started noticing blood in her vomitus, because of worsening of symptoms and abdominal pain she decided to come to the hospital for further evaluation, she carries history of GERD/esophagitis. No history of ulcer does not take NSAIDs. Previous colonoscopy showed polyps no history of cancer. She was following up with Dr. Brown for her kidney stone. She is endorsing history of recurrent CVA no history of CHF or coronary disease. In the ER she has significant leukocytosis with signs of hemoconcentration and stable hemoglobin with tachycardia Review of Systems 2 Const: Denies: fever(s) Eyes: Denies: change in vision ENMT: Denies: throat pain Card: Denies: chest pain Resp: Denies: dyspnea GI: Reports: abdominal pain, nausea and coffee ground emesis : Denies: flank pain Musc: Denies: neck pain Medications/Allergies Home Medications Medication Instructions Recorded Confirmed Last Taken Type budesonide-formoterol HFA 160 2 puff inhalation Q12H 12/11/20 08/21/23 08/21/23 History mcg-4.5 mcg/actuation aerosol inhaler (Symbicort) cetirizine 10 mg capsule (All Day 10 mg PO DAILY PRN Allergy Symptoms 12/11/20 08/21/23 03/14/22 History Allergy (cetirizine)) fluticasone propionate 50 1 spray intranasal DAILY 12/11/20 08/21/23 08/21/23 History mcg/actuation nasal spray,suspension glimepiride 4 mg tablet 4 mg PO BID 12/11/20 08/21/23 08/21/23 History atenolol 50 mg tablet 25 mg PO DAILY 10/16/21 08/21/23 08/21/23 History gabapentin 600 mg tablet 600 mg PO DAILY PRN NERVE PAIN 10/16/21 08/21/23 03/14/22 History zolpidem 10 mg tablet 10 mg PO BEDTIME 12/20/21 08/21/23 08/20/23 History fluoxetine 20 mg capsule 20 mg PO DAILY 02/21/22 08/21/23 08/21/23 History pantoprazole 40 mg tablet,delayed 40 mg PO DAILY 02/21/22 08/21/23 08/21/23 History release methenamine hippurate 1 gram tablet 1 g PO BID #60 tabs 09/19/22 08/21/23 08/21/23 Rx amlodipine 2.5 mg tablet 2.5 mg PO DAILY HTN 30 days #30 04/07/23 08/21/23 08/21/23 Rx tabs albuterol sulfate 90 mcg/actuation 2 inh inhalation Q4H PRN Shortness 08/21/23 08/21/23 Unknown History aerosol inhaler (Ventolin HFA) Of Breath ascorbic acid (vitamin C) 1,000 mg 1,000 mg PO BID 08/21/23 08/21/23 08/21/23 History tablet (Vitamin C) atorvastatin 40 mg tablet 40 mg PO QPM 08/21/23 08/21/23 08/20/23 History brimonidine 0.2 % eye drops 1 drp ophthalmic (eye) BID 08/21/23 08/21/23 08/21/23 History dorzolamide 22.3 mg-timolol 6.8 1 drp ophthalmic (eye) BID 08/21/23 08/21/23 08/21/23 History mg/mL eye drops latanoprost 0.005 % eye drops 1 drp ophthalmic (eye) BEDTIME 08/21/23 08/21/23 08/20/23 History tamsulosin 0.4 mg capsule 0.4 mg PO DAILY 08/21/23 08/21/23 08/20/23 History Allergies Allergy/AdvReac Type Severity Reaction Status Date / Time codeine Allergy UNKNOWN Verified 09/23/22 10:17 hydrocodone Allergy ADR-Nausea Verified 09/23/22 10:17 prochlorperazine Allergy ADR-Nausea Verified 09/23/22 10:17 [From Compazine] PFSH Acute 2 PFSH: Medical History Urgency incontinence Cystitis cystica COPD (chronic obstructive pulmonary disease) Diabetes Peripheral neuropathy Hypercholesterolemia Hyperlipidemia Nephrolithiasis Ureterolithiasis Lung disease TIA (transient ischemic attack) Surgical History History of knee surgery History of hysterectomy History of cholecystectomy Family History Mother Lung cancer Ovarian cancer Cancer Lung disease Father Prostate cancer Stroke Anesthesia complication CAD (coronary artery disease) Lung cancer Family/Other CAD (coronary artery disease), Onset Age: 40 Dementia Diabetes Suicide Daughter Cancer Denies family history of Clotting disorder Chronic kidney disease (CKD) Bleeding disorder Social History Smoking and tobacco/nicotine status: never used tobacco/nicotine Alcohol intake: never Substance/Drug Use: never Marital status: Current occupational status: disabled Vitals/I&O/Wt Last Vital Signs Temp 97.7 F 08/21/23 13:35 Pulse 101 H 08/21/23 18:00 Resp 16 08/21/23 16:45 BP 131/72 08/21/23 18:00 Pulse Ox 97 08/21/23 18:00 O2 Del Method Room Air 08/21/23 13:35 08/21/23 08/21/23 08/21/23 06:59 14:59 22:59 Intake Total 1000 / 1000 Balance 1000 / 1000 Weight last 48 hrs Weight 62.596 kg Physical Exam 2 Narrative: Patient is laying supine GCS 15 Pleasant well-appearing Nonfocal neuroexam S1, S2 Currently on room air No active chest pain or shortness of breath No active discomfort Mild tachycardia Data 08/21/23 14:20 08/21/23 14:10 A&P Assessment and plan (1) Benign essential HTN: (2) Patent foramen ovale: (3) Exertional shortness of breath: (4) Diabetes: (5) Hematemesis: (6) Esophagitis: Plan Hematemesis Lizzy-Giles tear? Hemoglobin stable History of GERD, esophagitis noted on CT abdomen pelvis, no history of hepatitis, HIV does not drink alcohol no previous history of gastric ulcer, does not use ibuprofen on daily basis Hemodynamic stable Tachycardia IV fluids overnight N.p.o. after midnight In case of further episode of hematemesis she might need an EGD Monitor for now start Protonix and sucralfate Observation Full code DVT prophylaxis: SCD FOBT positive Recurrent UTIs: No active symptoms History of kidney stone her white count is 19,000, I will put her on ceftriaxone for now no active fever but she is tachycardic it could be leukemoid reaction to recurrent hematemesis Attestations 2 Medical Necessity Statement*: Anticipating discharge within 48 hours will need monitoring for hematemesis Diagnoses Benign essential HTN I10 Patent foramen ovale Q21.12 Exertional shortness of breath R06.02 Diabetes E11.9 Hematemesis K92.0 Esophagitis K20.90
[2023-08-21] MEDS: sucralfate 1 gm/10 mL Oral Liq UDC PO (22:05)
[2023-08-22] VITALS (7 sets, daily range): BP systolic 100–144; BP diastolic 62–85; PULSE 98–114; RESP 16–18; TEMP 36.7–36.9; O2SAT 94–100
[2023-08-22 06:04] LABS: Basophils % 0.3 %; Eosinophils # 0.1 10^3/uL (0.0-0.8); Hematocrit 38.8 % (36-47); Lymphocytes # 2.5 10^3/uL (0.8-4.8); Lymphocytes % 20.8 %; Mean Corpuscular HGB Conc 31.7 g/dL (30-55); Mean Corpuscular Volume 88.2 fl (85-98); Mean Platelet Volume 10.4 fL (7.4-10.4); Monocytes % 8.8 %; Neutrophils # 8.06 10^3/uL (1.8-7.7); Neutrophils % 68.6 %; Nucleated Red Blood Cells % 0 %; Platelet Count 245 10^3/cmm (157-399); Red Cell Distribution Width 13.9 % (12.1-15.1); White Blood Count 11.77 10^3/uL (3.29-11.43)
[2023-08-22 06:28] LABS: Blood Urea Nitrogen 11 mg/dL (8-23); Calcium 8.7 mg/dL (8.5-10.5); Carbon Dioxide 27 mmol/L (22-29); Chloride 101 mmol/L (98-107); Glomerular Filtration Rate 84.5 mL/min (90-130); Glucose 194 mg/dL (65-115); Osmolality Calculated 293 mOsm/kg (285-295); Sodium 139 mmol/L (136-145)
[2023-08-22] MEDS: sucralfate 1 gm/10 mL Oral Liq UDC PO (06:46)
[2023-08-22] MEDS: sodium chloride 0.9% 1,000 ML 30 ML IV (07:07)
--- NOTE | 2023-08-22 08:06 | P.CONIM_ITS ---
Providers/Reason For Consult 2 Consulting Physician/Specialty*: General surgery Reason for Consult*: Upper GI bleeding Attending Physician: Rubia Sal MD Primary Care Provider: Oscar Bell History of Present Illness History of Present Illness Marilu Adames is a 63 year old female with history of COPD, hypertension and GERD who presented to the hospital complaining of several days of upper abdominal pain nausea and vomit. Vomit was bilious in nature at the beginning and then progressed to be bloody. This prompted the patient to present to the emergency department. In the ED a CT scan was done which show evidence of no intra-abdominal pathology but there was thickening in the lower esophagus consistent with the possibility of acute esophagitis. In addition to that laboratory workup was remarkable for hemoconcentration with elevated WBC and hemoglobin of 15. After hydration hemoglobin trended down to 12 which is in line to previous measurements. Patient denies any further vomiting since being admitted to the hospital. No significant abdominal pain. Review of Systems 2 General: Reports: 10 or more systems reviewed and unremarkable except in HPI and below Medications/Allergies Home Medications Medication Instructions Recorded Confirmed Last Taken Type budesonide-formoterol HFA 160 2 puff inhalation Q12H 12/11/20 08/21/23 08/21/23 History mcg-4.5 mcg/actuation aerosol inhaler (Symbicort) cetirizine 10 mg capsule (All Day 10 mg PO DAILY PRN Allergy Symptoms 12/11/20 08/21/23 03/14/22 History Allergy (cetirizine)) fluticasone propionate 50 1 spray intranasal DAILY 12/11/20 08/21/23 08/21/23 History mcg/actuation nasal spray,suspension glimepiride 4 mg tablet 4 mg PO BID 12/11/20 08/21/23 08/21/23 History atenolol 50 mg tablet 25 mg PO DAILY 10/16/21 08/21/23 08/21/23 History gabapentin 600 mg tablet 600 mg PO DAILY PRN NERVE PAIN 10/16/21 08/21/23 03/14/22 History zolpidem 10 mg tablet 10 mg PO BEDTIME 12/20/21 08/21/23 08/20/23 History fluoxetine 20 mg capsule 20 mg PO DAILY 02/21/22 08/21/23 08/21/23 History pantoprazole 40 mg tablet,delayed 40 mg PO DAILY 02/21/22 08/21/23 08/21/23 History release methenamine hippurate 1 gram tablet 1 g PO BID #60 tabs 09/19/22 08/21/23 08/21/23 Rx amlodipine 2.5 mg tablet 2.5 mg PO DAILY HTN 30 days #30 04/07/23 08/21/23 08/21/23 Rx tabs albuterol sulfate 90 mcg/actuation 2 inh inhalation Q4H PRN Shortness 08/21/23 08/21/23 Unknown History aerosol inhaler (Ventolin HFA) Of Breath ascorbic acid (vitamin C) 1,000 mg 1,000 mg PO BID 08/21/23 08/21/23 08/21/23 History tablet (Vitamin C) atorvastatin 40 mg tablet 40 mg PO QPM 08/21/23 08/21/23 08/20/23 History brimonidine 0.2 % eye drops 1 drp ophthalmic (eye) BID 08/21/23 08/21/23 08/21/23 History dorzolamide 22.3 mg-timolol 6.8 1 drp ophthalmic (eye) BID 08/21/23 08/21/23 08/21/23 History mg/mL eye drops latanoprost 0.005 % eye drops 1 drp ophthalmic (eye) BEDTIME 08/21/23 08/21/23 08/20/23 History tamsulosin 0.4 mg capsule 0.4 mg PO DAILY 08/21/23 08/21/23 08/20/23 History Allergies Allergy/AdvReac Type Severity Reaction Status Date / Time codeine Allergy UNKNOWN Verified 09/23/22 10:17 hydrocodone Allergy ADR-Nausea Verified 09/23/22 10:17 prochlorperazine Allergy ADR-Nausea Verified 09/23/22 10:17 [From Compazine] Current Medications Generic Name Dose Route Start Last Admin Trade Name Freq PRN Reason Stop Dose Admin Sodium Chloride 1,000 mls @ 30 mls/hr 08/22/23 06:10 08/22/23 07:07 Sodium Chloride 0.9% IV 08/23/23 06:09 30 mls/hr .Q24H ONE Administration Ondansetron HCl 4 mg 08/21/23 19:54 08/21/23 20:27 Ondansetron 2 Mg/Ml Sdv 2 Ml IVP 4 mg Q6H PRN Administration NAUSEA AND VOMITING Sucralfate 1 gm 08/21/23 21:00 08/22/23 06:46 Sucralfate 1 Gm/10 Ml Oral Liq Udc PO 1 gm AC&BEDTIME STEPHON Administration PFSH Acute 2 PFSH: Medical History Urgency incontinence Cystitis cystica COPD (chronic obstructive pulmonary disease) Diabetes Peripheral neuropathy Hypercholesterolemia Hyperlipidemia Nephrolithiasis Ureterolithiasis Lung disease TIA (transient ischemic attack) Surgical History History of knee surgery History of hysterectomy History of cholecystectomy Family History Mother Lung cancer Ovarian cancer Cancer Lung disease Father Prostate cancer Stroke Anesthesia complication CAD (coronary artery disease) Lung cancer Family/Other CAD (coronary artery disease), Onset Age: 40 Dementia Diabetes Suicide Daughter Cancer Denies family history of Clotting disorder Chronic kidney disease (CKD) Bleeding disorder Social History Smoking and tobacco/nicotine status: never used tobacco/nicotine Alcohol intake: never Substance/Drug Use: never Marital status: Current occupational status: disabled Vitals/I&O/Wt Last Vital Signs Temp 98.0 F 08/22/23 05:00 Pulse 98 08/22/23 05:00 Resp 18 08/22/23 05:00 BP 124/82 08/22/23 05:00 Pulse Ox 94 08/22/23 05:00 O2 Del Method Room Air 08/21/23 20:53 08/21/23 08/22/23 08/22/23 22:59 06:59 14:59 Intake Total 1240 / 1240 Balance 1240 / 1240 Weight last 48 hrs Weight 138 lb 12.8 oz Weight 138 lb 12.8 oz Weight 138 lb Physical Exam 2 Narrative: General : Patient is well developed , no acute distress, oriented x3 Head : Normal cephalic, a-traumatic. Nose : Mucous membranes are without erythema. Lungs : Equal chest rise bilaterally, no use of accessory muscles, trachea is midline. CV : Rate and rhythm are normal. Abdomen : Soft, ND, NT, no g/r/m Extremities : No edema. Upper extremities are normal bilaterally. Back : non-tender to palpation, no CVA tenderness. Data 08/22/23 05:17 08/22/23 05:17 A&P Assessment and plan (1) Upper GI bleeding: After complete history, physical examination and review of all available clinical data the following is my assessment. Patient likely suffering from esophagitis due to reflux versus Lizzy-Giles tear due to significant nausea and vomit. At the moment bleeding appears to have stopped or slowed down, I will proceed with endoscopy today for evaluation and therapy as needed. Patient had a being informed of all the risk and benefits of the procedure including the risk of perforation of the esophagus stomach or duodenum requiring surgical intervention and transfer to higher level of care. Patient agrees and wishes to proceed. After endoscopy, most likely will agree to advance patient's diet and start sucralfate 3 times a day. Depending on the findings patient may likely require repeat endoscopy in 6 months. Coding Level of Care Code [facility] Diagnoses Upper GI bleeding K92.2
--- NOTE | 2023-08-22 08:47 | ANES.PREANE2 ---
Pre-Anesthetic Assessment Height/Weight: Height 1.57 m Weight 62.959 kg Temp Pulse Resp BP Pulse Ox O2 Del Method 98.2 F 104 H 17 126/82 95 Room Air 08/22/23 08:10 08/22/23 08:10 08/22/23 08:10 08/22/23 08:10 08/22/23 08:10 08/22/23 08:10 Preop Diagnosis: GI Bleeding Operation Date: 08/22/23 08:30 Proposed Procedures p EGD(Not Applicable) - Oscar Johnson MD Familial anesthetic complications: none Last intake: Intake Last Liquid Date 08/21/23 Last Liquid Time 23:30 Last Solid Date 08/20/23 Last Solid Time 18:30 Social No alcohol and No tobacco Exam alert, oriented x 3, clear to auscultation bilaterally and regular rate & rhythm Airway Submandibular: within normal limits Cervical ROM: within normal limits Mallampati: Class I Dentition: false History/ROS No significant history except as noted Pulmonary Asthma, Chronic Obstructive Pulmonary Disease and Exertional Dyspnea CV/HEM Coronary Artery Disease and Hypertension stents angioplast 2021 None reported Hepatic None reported GI Gastroesophageal Reflux Disease Metabolic Diabetes Mellitus (controlled with medication) Musc/skel Lower Back Pain and Osteoarthritis/DJD Neuropsych Transient Ischemic Attack (x2) and None reported Anesthetic Plan ASA status: 3 Anesthesia: Anesthesia Evaluation and MAC Risk of > 500 ml blood loss (7ml/kg in children): No Medications/Allergies Home Medications Medication Instructions Recorded Confirmed Last Taken Type budesonide-formoterol HFA 160 2 puff inhalation Q12H 12/11/20 08/21/23 08/21/23 History mcg-4.5 mcg/actuation aerosol inhaler (Symbicort) cetirizine 10 mg capsule (All Day 10 mg PO DAILY PRN Allergy Symptoms 12/11/20 08/21/23 03/14/22 History Allergy (cetirizine)) fluticasone propionate 50 1 spray intranasal DAILY 12/11/20 08/21/23 08/21/23 History mcg/actuation nasal spray,suspension glimepiride 4 mg tablet 4 mg PO BID 12/11/20 08/21/23 08/21/23 History atenolol 50 mg tablet 25 mg PO DAILY 10/16/21 08/21/23 08/21/23 History gabapentin 600 mg tablet 600 mg PO DAILY PRN NERVE PAIN 10/16/21 08/21/23 03/14/22 History zolpidem 10 mg tablet 10 mg PO BEDTIME 12/20/21 08/21/23 08/20/23 History fluoxetine 20 mg capsule 20 mg PO DAILY 02/21/22 08/21/23 08/21/23 History pantoprazole 40 mg tablet,delayed 40 mg PO DAILY 02/21/22 08/21/23 08/21/23 History release methenamine hippurate 1 gram tablet 1 g PO BID #60 tabs 09/19/22 08/21/23 08/21/23 Rx amlodipine 2.5 mg tablet 2.5 mg PO DAILY HTN 30 days #30 04/07/23 08/21/23 08/21/23 Rx tabs albuterol sulfate 90 mcg/actuation 2 inh inhalation Q4H PRN Shortness 08/21/23 08/21/23 Unknown History aerosol inhaler (Ventolin HFA) Of Breath ascorbic acid (vitamin C) 1,000 mg 1,000 mg PO BID 08/21/23 08/21/23 08/21/23 History tablet (Vitamin C) atorvastatin 40 mg tablet 40 mg PO QPM 08/21/23 08/21/23 08/20/23 History brimonidine 0.2 % eye drops 1 drp ophthalmic (eye) BID 08/21/23 08/21/23 08/21/23 History dorzolamide 22.3 mg-timolol 6.8 1 drp ophthalmic (eye) BID 08/21/23 08/21/23 08/21/23 History mg/mL eye drops latanoprost 0.005 % eye drops 1 drp ophthalmic (eye) BEDTIME 08/21/23 08/21/23 08/20/23 History tamsulosin 0.4 mg capsule 0.4 mg PO DAILY 08/21/23 08/21/23 08/20/23 History Allergies Allergy/AdvReac Type Severity Reaction Status Date / Time codeine Allergy UNKNOWN Verified 09/23/22 10:17 hydrocodone Allergy ADR-Nausea Verified 09/23/22 10:17 prochlorperazine Allergy ADR-Nausea Verified 09/23/22 10:17 [From Compazine] Current Medications Generic Name Dose Route Start Last Admin Trade Name Freq PRN Reason Stop Dose Admin Sodium Chloride 1,000 mls @ 30 mls/hr 08/22/23 06:10 08/22/23 07:07 Sodium Chloride 0.9% IV 08/23/23 06:09 30 mls/hr .Q24H ONE Administration Ondansetron HCl 4 mg 08/21/23 19:54 08/21/23 20:27 Ondansetron 2 Mg/Ml Sdv 2 Ml IVP 4 mg Q6H PRN Administration NAUSEA AND VOMITING Sucralfate 1 gm 08/21/23 21:00 08/22/23 06:46 Sucralfate 1 Gm/10 Ml Oral Liq Udc PO 1 gm AC&BEDTIME STEPHON Administration PFSH Anesthesia Medical History Urgency incontinence Cystitis cystica COPD (chronic obstructive pulmonary disease) Diabetes Peripheral neuropathy Hypercholesterolemia Hyperlipidemia Nephrolithiasis Ureterolithiasis Lung disease TIA (transient ischemic attack) Surgical History History of knee surgery History of hysterectomy History of cholecystectomy Family History Mother Lung cancer Ovarian cancer Cancer Lung disease Father Prostate cancer Stroke Anesthesia complication CAD (coronary artery disease) Lung cancer Family/Other CAD (coronary artery disease), Onset Age: 40 Dementia Diabetes Suicide Daughter Cancer Denies family history of Clotting disorder Chronic kidney disease (CKD) Bleeding disorder Social History Smoking and tobacco/nicotine status: never used tobacco/nicotine Alcohol intake: never Substance/Drug Use: never Marital status: Current occupational status: disabled Data Anesthesia 08/22/23 05:17 08/22/23 05:17 Short CBC 08/21/23 08/22/23 Range/Units 14:20 05:17 WBC 19.50 H 11.77 H (3.29-11.43) 10^3/uL Hgb 15.00 12.30 (11.27-16.99) g/dL Hct 46.6 38.8 (36-47) % MCV 85.8 88.2 (85-98) fl Plt Count 242 245 (157-399) 10^3/cmm Neut % (Auto) 76.4 68.6 % Neut # (Auto) 14.91 H 8.06 H (1.8-7.7) 10^3/uL BMP 08/21/23 08/21/23 08/22/23 14:10 14:20 05:17 Sodium 141 Cancelled 139 Potassium 3.9 Cancelled 4.0 Chloride 99 Cancelled 101 Carbon Dioxide 29 Cancelled 27 BUN 14 Cancelled 11 Creatinine 0.7 Cancelled 0.7 Glucose 191 H Cancelled 194 H Calcium 9.5 Cancelled 8.7 Liver Function 08/21/23 08/21/23 Range/Units 14:10 14:20 Total Bilirubin 0.6 Cancelled (0.15-1.2) mg/dL AST 21 Cancelled (0-32) U/L ALT 22 Cancelled (0-33) U/L Alkaline Phosphatase 134 H Cancelled (35-105) U/L Albumin 3.9 Cancelled (3.5-5.2) g/dL Urine 08/21/23 Range/Units 14:30 Urine Color Yellow (Yellow) Urine Appearance Sl hazy A (CLEAR) Urine pH 5 (5-7) Ur Specific [place] 1.025 (1.005-1.030) Urine Protein 1+ H (Negative) Urine Glucose (UA) Norm (Normal) Urine Ketones 1+ H (Negative) Urine Nitrate Negative (Negative) Urine Bilirubin Neg (Negative) Ur Leukocyte Esterase Trace H (Negative) Urine RBC 0-4 H (0-2) /hpf Urine WBC 0-4 H (0-5) /hpf Coags 08/21/23 14:20 PT 13.00 INR 0.96 Cardiac Studies: Transesophageal Echocardiogram 03/15/22 Sestamibi Stress Test (Cardiology) 06/03/22 Cardiac Event Monitor 05/30/22
--- NOTE | 2023-08-22 09:13 | P.MISC_ITS ---
Miscellaneous Note Purpose of Documentation: Update on patient care Note: 63-year-old female who presented to the hospital 2 with hematemesis. Upper endoscopy was done today. Endoscopy findings show severe caustic and reflux esophagitis. No active bleeding, no evidence of mucosal tearing. On the stomach there was mild gastritis as well as in the duodenal bulb. My recommendation is to start the patient on 3 times a day liquid Carafate 1 g, pantoprazole 40 mg twice daily, diet can be advanced as tolerated. Patient will require repeat endoscopy in the next 6 months to a year to ensure resolution of esophagitis. In addition patient should avoid caustic foods, coffee, alcohol intake. -Cleared to advance diet as tolerated -Please start Carafate 1 g liquid 3 time s a day -Please start Protonix 40 mg twice daily -Patient can follow-up with me as outpat ient when she leaves the hospital
--- NOTE | 2023-08-22 10:00 | PC.CHAP ---
Pastoral Care Encounter/Spiritual Assessment Type of Contact [] Declined section gang worker visit [] Patient/Family/Request visit [] Outpatient visit [] Follow-up visit [] Physician referral [] Code/Alert [] Routine visit [] Staff referral [] Actively dying [] Patient sleeping [] Family support [] [x] Out of room [] Palliative care [] [] Receiving care in room [] Pre-surgical visit [] Trauma [] Long length of stay [] ICU visit [] Other: Relational/Emotional Strength [] Patient feels connected with others/family/visitors/staff [] Distress [] Loneliness/isolation [] Abandonment Spirituality of Patient [] Person of Joann [] Attends Synagogue of their Joann [] Believes in Prayer [] Reads Bible or Jehovah'S Witness materials [] There are Spiritual issues to be addressed Shift Superintendent Caustic Cresylate Interventions [] Prayer [] Active listening [] Non-anxious presence [] Spiritual/emotional support [] Crisis/trauma care [] Spiritual counseling [] Bereavement support [] Provided bereavement packet [] Provided Bible/devotional materials [] Provided toy/stuffed animal, coloring book to patient or family member [] Provided Communion [] Anointing/[place] [] Salvation [] Completed spiritual assessment [] Other: Impact on Illness or Injury [] Angry [] Fearful [] Anxious [] Often cries [] Exhaustion [] Unable to work [] Unable to attend judaism [] Unable to walk/stand [] Unable to read [] Unable to drive [] Unable to eat/drink [] Unable to sleep [] Unable to be with family [] Patient intubated [] Other: Summary Time spent with patient
--- NOTE | 2023-08-22 10:11 | P.DS_ITS ---
Discharge Providers Date of Admission: 08/21/23 17:44 Date of Discharge: August 22, 2023 Attending Provider at Admission: Rubia Sal MD Attending Provider at Discharge: Rubia Sal MD Primary Care Provider: Oscar Bell Diagnoses at Discharge Discharge Diagnosis (1) Upper GI bleeding: Status: Acute Reason for Visit Reason for Visit: sent over by dr discolored vomit Hospital Course Hospital Course 63-year-old female who was admitted for management evaluation of recurrent nausea vomiting she was experiencing hematemesis, hemoglobin stable, there was concern for Lizzy-Giles tear, she was kept n.p.o. General surgery was cons ulted, patient went for EGD which showed severe gastritis with dysplasia, she will be given sucralfate and Protonix, patient has been advised to avoid ibuprofen, alcohol. She is being discharged with stable hemodynamics. Physical Exam Narrative: Pleasant cooperative Tolerating diet GCS 15 No more nausea vomiting or hematemesis Pleasant Signs of dehydration present but improving Doing well on room air Nonfocal neuroexam Discharge Data Studies Completed and Pending Completed Studies During Hospitalization Category Date Time Status CT abdomen pelvis w con* [id number] Stat Cat Scan 08/21/23 14:03 Completed Pending at discharge Category Date Time Status Pathology: Surgical [PTH] Routine Pth 08/22/23 09:12 Ordered Radiology Impressions Abdomen/Pelvis CT 08/21/23 14:03 IMPRESSION: 1. Findings consistent with acute esophagitis 2. Right renal pelvis stone Laboratory Results WBC 11.77 10^3/uL (3.29-11.43) H 08/22/23 05:17 RBC 4.40 10^6/uL (3.85-5.65) 08/22/23 05:17 Hgb 12.30 g/dL (11.27-16.99) 08/22/23 05:17 Hct 38.8 % (36-47) 08/22/23 05:17 MCV 88.2 fl (85-98) 08/22/23 05:17 MCH 28.0 pg (27-33) 08/22/23 05:17 MCHC 31.7 g/dL (30-55) 08/22/23 05:17 RDW 13.9 % (12.1-15.1) 08/22/23 05:17 Plt Count 245 10^3/cmm (157-399) 08/22/23 05:17 MPV 10.4 fL (7.4-10.4) 08/22/23 05:17 Neut % (Auto) 68.6 % 08/22/23 05:17 Lymph % (Auto) 20.8 % 08/22/23 05:17 George % (Auto) 8.8 % 08/22/23 05:17 Eos % (Auto) 1.0 % 08/22/23 05:17 Baso % (Auto) 0.3 % 08/22/23 05:17 Neut # (Auto) 8.06 10^3/uL (1.8-7.7) H 08/22/23 05:17 Lymph # (Auto) 2.5 10^3/uL (0.8-4.8) 08/22/23 05:17 George # (Auto) 1.0 10^3/uL (0.2-0.9) H 08/22/23 05:17 Eos # (Auto) 0.1 10^3/uL (0.0-0.8) 08/22/23 05:17 Baso # (Auto) 0.0 10^3/uL (0.0-0.1) 08/22/23 05:17 Nucleated RBC % (auto) 0 % 08/22/23 05:17 Nucleated RBCs # 0.0 /100WBC 08/22/23 05:17 PT 13.00 SECONDS (12.1-14.9) 08/21/23 14:20 INR 0.96 (0.8-1.2) 08/21/23 14:20 Sodium 139 mmol/L (136-145) 08/22/23 05:17 Potassium 4.0 mmol/L (3.5-5.1) 08/22/23 05:17 Chloride 101 mmol/L (98-107) 08/22/23 05:17 Carbon Dioxide 27 mmol/L (22-29) 08/22/23 05:17 Anion Gap 15.0 (5-19) 08/22/23 05:17 BUN 11 mg/dL (8-23) 08/22/23 05:17 Creatinine 0.7 mg/dL (0.5-0.9) 08/22/23 05:17 GFR Calculation 84.5 mL/min (90-130) L 08/22/23 05:17 Glucose 194 mg/dL (65-115) H 08/22/23 05:17 Calculated Osmolality 293 mOsm/kg (285-295) 08/22/23 05:17 Calcium 8.7 mg/dL (8.5-10.5) 08/22/23 05:17 Magnesium 1.0 mg/dL (1.7-2.3) L 08/22/23 05:17 Total Bilirubin Cancelled 08/21/23 14:20 AST Cancelled 08/21/23 14:20 ALT Cancelled 08/21/23 14:20 Alkaline Phosphatase Cancelled 08/21/23 14:20 Total Protein Cancelled 08/21/23 14:20 Albumin Cancelled 08/21/23 14:20 Globulin Cancelled 08/21/23 14:20 Lipase Cancelled 08/21/23 14:20 Urine Color Yellow (Yellow) 08/21/23 14:30 Urine Appearance Sl hazy (CLEAR) A 08/21/23 14:30 Urine pH 5 (5-7) 08/21/23 14:30 Ur Specific [place] 1.025 (1.005-1.030) 08/21/23 14:30 Urine Protein 1+ (Negative) H 08/21/23 14:30 Urine Glucose (UA) Norm (Normal) 08/21/23 14:30 Urine Ketones 1+ (Negative) H 08/21/23 14:30 Urine Blood Trace (Negative) H 08/21/23 14:30 Urine Nitrate Negative (Negative) 08/21/23 14:30 Urine Bilirubin Neg (Negative) 08/21/23 14:30 Urine Urobilinogen Norm mg/dL (Negative) 08/21/23 14:30 Ur Leukocyte Esterase Trace (Negative) H 08/21/23 14:30 Urine RBC 0-4 /hpf (0-2) H 08/21/23 14:30 Urine WBC 0-4 /hpf (0-5) H 08/21/23 14:30 Ur Squamous Epith Cells 0-4 /hpf (0-5) H 08/21/23 14:30 Amorphous Sediment Not Reportable 08/21/23 14:30 Urine Bacteria Trace /hpf (NONE) 08/21/23 14:30 Urine Mucus Trace /hpf 08/21/23 14:30 Gastric Occult Blood Positive (Negative) H 08/21/23 16:27 Vitals Last Vital Signs Temp 98.2 F 08/22/23 09:15 Pulse 103 H 08/22/23 09:19 Resp 16 08/22/23 09:19 BP 100/66 08/22/23 09:19 Pulse Ox 100 08/22/23 09:19 O2 Del Method Room Air 08/22/23 09:19 Discharge Plan Discharge Patient Disposition: Home Condition: Stable Prescriptions: New pantoprazole [Protonix] 40 mg tablet,delayed release (DR/EC) 40 mg PO BID 56 Days Qty: 112 0RF sucralfate 1 gram tablet 1 g PO TID 56 Days Qty: 168 0RF Continued gabapentin 600 mg tablet 600 mg PO DAILY PRN (Reason: NERVE PAIN) All Day Allergy (cetirizine) 10 mg capsule 10 mg PO DAILY PRN (Reason: Allergy Symptoms) budesonide-formoterol [Symbicort] 160-4.5 mcg/actuation HFA aerosol inhaler 2 puff inhalation Q12H fluticasone propionate 50 mcg/actuation spray,suspension 1 spray intranasal DAILY Rx Instructions: administer into each nostril glimepiride 4 mg tablet 4 mg PO BID atenolol 50 mg tablet 25 mg PO DAILY fluoxetine 20 mg capsule 20 mg PO DAILY methenamine hippurate 1 gram tablet 1 g PO BID Qty: 60 12RF Rx Instructions: Take 1000 mg of vitamin C with each dose of methenamine amlodipine 2.5 mg tablet 2.5 mg PO DAILY 30 Days Qty: 30 5RF latanoprost 0.005 % drops 1 drp ophthalmic (eye) BEDTIME Vitamin C 1,000 mg Tablet 1,000 mg PO BID brimonidine 0.2 % drops 1 drp ophthalmic (eye) BID dorzolamide-timolol 22.3-6.8 mg/mL drops 1 drp ophthalmic (eye) BID Ventolin HFA 90 mcg/actuation HFA aerosol inhaler 2 inh INHALATION Q4H PRN (Reason: Shortness Of Breath) atorvastatin 40 mg tablet 40 mg PO QPM tamsulosin 0.4 mg capsule 0.4 mg PO DAILY zolpidem 10 mg tablet 10 mg PO BEDTIME Discontinued pantoprazole 40 mg tablet,delayed release (DR/EC) 40 mg PO DAILY Discharge Orders: Discharge Order (Routine); Ordered 08/22/23 Ordered By: Rubia Sal Referrals: Oscar Bell [Primary Care Provider] - Patient Instructions: GI Discharge Instructions, Opioid Safety Discharge Attestations Time Spent in Discharge Care*: less than 30 min Quality Metrics Clinical Quality Measures [ No reported AMI, CVA or VTE this stay] Coding Level of Care Code Acute Code for [facility] Diagnoses Upper GI bleeding K92.2
--- NOTE | 2023-08-22 10:15 | PC.NURSE ---
Returns from EGD procedure. Stable. Post op vitals being monitored.
--- NOTE | 2023-08-22 10:41 | PC.NURSE ---
DELAYED DISCHARGE - Paperwork completed. IVs out. Questions answered. Delayed d/c due to awaiting transportation. Pt asks if she can drive self; this nurse informs pt that it is unsafe to drive after having EGD procedure.
== END 2023-08-22 13:15 | disposition home or self-care (01) ==
LOC: ER 17:53 → MEDSURG 18:43
PROVIDERS: Surgery; Admitting Provider Internal Medicine; Emergency Provider Emergency Medicine; PCP Family Medicine; Visit Provider Internal Medicine
PROC: 0DJ08ZZ Inspection of Upper Intestinal Tract, Via Natural or Artificial Opening Endoscopic (ICD-10-PCS; CPT 43235; principal; 2023-08-22 08:30)
DX: K92.0 Hematemesis (principal); I10 Essential (primary) hypertension; Q21.12 Patent foramen ovale; R06.02 Shortness of breath; E11.9 Type 2 diabetes mellitus without complications; K20.90 Esophagitis, unspecified without bleeding; K21.9 Gastro-esophageal reflux disease without esophagitis; E11.42 Type 2 diabetes mellitus with diabetic polyneuropathy; E78.5 Hyperlipidemia, unspecified; Z86.73 Personal history of transient ischemic attack (TIA), and cerebral infarction without residual deficits; K92.2 Gastrointestinal hemorrhage, unspecified
CPT/HCPCS: 36415; 43239; 74177; 80048; 80053; 81001; 82271; 83690; 83735; 85025; 85610; 88305; 93005; 96361; 96365; 96375; 99285; C9113; G0378; J1200; J2405; J2704; J2765; J7030; Q9967

== ENCOUNTER 2024-07-09 21:51 | Emergency (ER) | payer MEDICAID, SELFPAY ==
--- NOTE | 2024-07-09 21:57 | XRR_ITS ---
PROCEDURE INFORMATION: Exam: XR Chest Exam date and time: 07/09/2024 10:11 PM Age: 64 years old Clinical indication: Chest pressure; Patient HX: Chest pain TECHNIQUE: Imaging protocol: Radiologic exam of the chest. Views: 1 view. COMPARISON: CR XR chest 1V portable [id number] 12/20/2021 9:07 AM FINDINGS: Lungs: Visualized portions of the lungs are clear. Pleural spaces: Unremarkable. No pleural effusion. No pneumothorax. Heart/Mediastinum: Heart is within normal limits of size. Bones/joints: There are old healed bilateral rib fractures unchanged. XR/XR chest 1V portable [id number] IMPRESSION: No acute infiltrate.
[2024-07-09 22:02] VITALS: BP 102/68; PULSE 76; RESP 17; TEMP 36.8; O2SAT 99; BMI 24.3
[2024-07-09 22:06] VITALS: TEMP 37
[2024-07-09 22:22] LABS: Basophils # 0.1 10^3/uL (0.0-0.1); Basophils % 0.7 %; Eosinophils # 0.2 10^3/uL (0.0-0.8); Eosinophils % 1.5 %; Hematocrit 37.9 % (36-47); Lymphocytes # 2.3 10^3/uL (0.8-4.8); Lymphocytes % 22.3 %; Mean Corpuscular HGB Conc 31.4 g/dL (30-55); Mean Corpuscular Hemoglobin 26.7 pg (27-33); Mean Corpuscular Volume 85.2 fl (85-98); Monocytes # 0.9 10^3/uL (0.2-0.9); Neutrophils # 6.78 10^3/uL (1.8-7.7); Neutrophils % 65.8 %; Nucleated Red Blood Cells % 0 %; Platelet Count 335 10^3/cmm (157-399); Red Blood Count 4.45 10^6/uL (3.85-5.65); Red Cell Distribution Width 13.9 % (12.1-15.1); White Blood Count 10.29 10^3/uL (3.29-11.43)
--- NOTE | 2024-07-09 22:42 | W.ED.CHESTPA ---
HPI - Chest Pain General: Chief Complaint: Chest Pain Stated Complaint: CHEST PAIN Time Seen by Provider: 07/09/24 21:57 History of Present Illness: Patient brought in by EMS with complaint of chest pain. She says she has been having left chest pain is radiated into her neck and into her left shoulder area. Patient is not having chest pain at this time. Patient does state she has a history of stroke and a hole in her heart that is small. Patient is on amlodipine, atenolol, atorvastatin, patient denies any shortness of breath diaphoresis nausea vomiting coughs colds fever chills Related Data Home Medications Medication Instructions Recorded Confirmed budesonide-formoterol HFA 160 2 puff inhalation Q12H 12/11/20 08/21/23 mcg-4.5 mcg/actuation aerosol inhaler (Symbicort) cetirizine 10 mg capsule (All Day 10 mg PO DAILY PRN Allergy Symptoms 12/11/20 08/21/23 Allergy (cetirizine)) fluticasone propionate 50 1 spray intranasal DAILY 12/11/20 08/21/23 mcg/actuation nasal spray,suspension glimepiride 4 mg tablet 4 mg PO BID 12/11/20 08/21/23 atenolol 50 mg tablet 25 mg PO DAILY 10/16/21 08/21/23 gabapentin 600 mg tablet 600 mg PO DAILY PRN NERVE PAIN 10/16/21 08/21/23 zolpidem 10 mg tablet 10 mg PO BEDTIME 12/20/21 08/21/23 fluoxetine 20 mg capsule 20 mg PO DAILY 02/21/22 08/21/23 albuterol sulfate 90 mcg/actuation 2 inh inhalation Q4H PRN Shortness 08/21/23 08/21/23 aerosol inhaler (Ventolin HFA) Of Breath ascorbic acid (vitamin C) 1,000 mg 1,000 mg PO BID 08/21/23 08/21/23 tablet (Vitamin C) atorvastatin 40 mg tablet 40 mg PO QPM 08/21/23 08/21/23 brimonidine 0.2 % eye drops 1 drp ophthalmic (eye) BID 08/21/23 08/21/23 dorzolamide 22.3 mg-timolol 6.8 1 drp ophthalmic (eye) BID 02/29/24 02/29/24 mg/mL eye drops latanoprost 0.005 % eye drops 1 drp ophthalmic (eye) BEDTIME 08/21/23 08/21/23 tamsulosin 0.4 mg capsule 0.4 mg PO DAILY 08/21/23 08/21/23 Previous Rx's Medication Instructions Recorded methenamine hippurate 1 gram tablet 1 g PO BID #60 tabs 09/19/22 amlodipine 2.5 mg tablet 2.5 mg PO DAILY HTN 30 days #90 11/21/23 tabs Allergies Allergy/AdvReac Type Severity Reaction Status Date / Time codeine Allergy UNKNOWN Verified 09/23/22 10:17 hydrocodone Allergy ADR-Nausea Verified 09/23/22 10:17 prochlorperazine Allergy ADR-Nausea Verified 09/23/22 10:17 [From Compazine] Review of Systems General: Reports: 10 or more systems reviewed and unremarkable except in HPI and below PFSH ED PFSH: Medical History Upper GI bleeding Esophagitis Hematemesis Exertional shortness of breath Patent foramen ovale Benign essential HTN Urgency incontinence Cystitis cystica COPD (chronic obstructive pulmonary disease) Diabetes Peripheral neuropathy Hypercholesterolemia Hyperlipidemia Nephrolithiasis Ureterolithiasis Lung disease TIA (transient ischemic attack) Surgical History History of knee surgery History of hysterectomy History of cholecystectomy Family History Mother Lung cancer Ovarian cancer Cancer Lung disease Father Prostate cancer Stroke Anesthesia complication CAD (coronary artery disease) Lung cancer Family/Other CAD (coronary artery disease), Onset Age: 40 Dementia Diabetes Suicide Daughter Cancer Denies family history of Clotting disorder Chronic kidney disease (CKD) Bleeding disorder Social History Smoking and tobacco/nicotine status: never used tobacco/nicotine Alcohol intake: never Substance/Drug Use: never Marital status: Current occupational status: disabled Physical Exam Const: COMMON NORMALS: no acute distress, average body habitus, patient oriented x3, no limitations, healthy appearing, alert and well nourished HENMT: COMMON NORMALS: normocephalic, atraumatic, hearing grossly normal bilaterally, external ears normal, Normal external nose present and moist oral mucous membranes HEAD & SCALP: normocephalic and atraumatic NOSE: Normal external nose present EXTERNAL EAR: Yes external ears normal Neck/C-Spine: COMMON NORMALS: no JVD Chest: COMMONS NORMALS: normal inspection of the chest and normal palpation of entire chest wall Resp: COMMON NORMALS: normal respiratory effort, No retractions, No use of accessory muscles and clear to auscultation bilaterally AUSCULTATION: clear to auscultation bilaterally Cardio: COMMON NORMALS: no JVD, regular rate, regular rhythm, S1 normal heart sound present, S2 normal heart sound present, No gallops present (Cardio), No clicks present (Cardio), No murmurs present (Cardio) and No rub (Cardio) RATE: regular rate RHYTHM: regular rhythm HEART SOUNDS: S1 normal heart sound present and S2 normal heart sound present GI: COMMON NORMALS: Normal to inspection, nondistended, normoactive bowel sounds present, Soft to palpation, non-tender, No hepatosplenomegaly present and no masses PALPATION: Yes Soft to palpation and Yes No hepatosplenomegaly present Neuro: COMMON NORMALS: patient oriented x3 SENSORIUM/ORIENTATION: Yes alert Course Vital Signs: Vital signs: Vital Signs Temperature 98.6 F 07/09/24 22:06 Pulse Rate 71 07/10/24 00:45 Respiratory Rate 17 07/09/24 23:21 Blood Pressure 102/68 07/09/24 22:02 Pulse Oximetry 96 07/09/24 23:21 Oxygen Delivery Me thod Room Air 07/09/24 23:21 MDM - Chest Pain Medical Decision Making Patient was worked up in standard chest pain fashion with physical exam, serial EKGs, troponins, lab work, chest x-ray, all which was essentially negative. Patient be discharged home. Medical Records I reviewed the patient's medical records. Lab Data I reviewed the patient's lab results. 07/09/24 22:10 07/09/24 22:10 Radiology Impressions Chest X-Ray 07/09/24 21:57 IMPRESSION: No acute infiltrate. Laboratory Results WBC 10.29 10^3/uL (3.29-11.43) 07/09/24 22:10 RBC 4.45 10^6/uL (3.85-5.65) 07/09/24 22:10 Hgb 11.90 g/dL (11.27-16.99) 07/09/24 22:10 Hct 37.9 % (36-47) 07/09/24 22:10 MCV 85.2 fl (85-98) 07/09/24 22:10 MCH 26.7 pg (27-33) L 07/09/24 22:10 MCHC 31.4 g/dL (30-55) 07/09/24 22:10 RDW 13.9 % (12.1-15.1) 07/09/24 22:10 Plt Count 335 10^3/cmm (157-399) 07/09/24 22:10 MPV 10.0 fL (7.4-10.4) 07/09/24 22:10 Neut % (Auto) 65.8 % 07/09/24 22:10 Lymph % (Auto) 22.3 % 07/09/24 22:10 [place] % (Auto) 9.0 % 07/09/24 22:10 Eos % (Auto) 1.5 % 07/09/24 22:10 Baso % (Auto) 0.7 % 07/09/24 22:10 Neut # (Auto) 6.78 10^3/uL (1.8-7.7) 07/09/24 22:10 Lymph # (Auto) 2.3 10^3/uL (0.8-4.8) 07/09/24 22:10 [place] # (Auto) 0.9 10^3/uL (0.2-0.9) 07/09/24 22:10 Eos # (Auto) 0.2 10^3/uL (0.0-0.8) 07/09/24 22:10 Baso # (Auto) 0.1 10^3/uL (0.0-0.1) 07/09/24 22:10 Nucleated RBC % (auto) 0 % 07/09/24 22:10 Nucleated RBCs # 0.0 /100WBC 07/09/24 22:10 Sodium 139 mmol/L (136-145) 07/09/24 22:10 Potassium 4.1 mmol/L (3.5-5.1) 07/09/24 22:10 Chloride 103 mmol/L (98-107) 07/09/24 22:10 Carbon Dioxide 24 mmol/L (22-29) 07/09/24 22:10 Anion Gap 16.1 (5-19) 07/09/24 22:10 BUN 16 mg/dL (8-23) 07/09/24 22:10 Creatinine 0.7 mg/dL (0.5-0.9) 07/09/24 22:10 GFR Calculation 84.2 mL/min (90-130) L 07/09/24 22:10 Glucose 193 mg/dL (65-115) H 07/09/24 22:10 Calculated Osmolality 294 mOsm/kg (285-295) 07/09/24 22:10 Calcium 8.8 mg/dL (8.5-10.5) 07/09/24 22:10 Total Bilirubin 0.5 mg/dL (0.15-1.2) 07/09/24 22:10 AST 18 U/L (0-32) 07/09/24 22:10 ALT 20 U/L (0-33) 07/09/24 22:10 Alkaline Phosphatase 155 U/L (35-105) H 07/09/24 22:10 Troponin T Baseline 8 ng/L (0-10) 07/09/24 22:10 Troponin T 120 Minute 8.69 ng/L (0-10) 07/10/24 00:39 Delta Troponin T 0.69 ABS# (0-10) 07/10/24 00:39 Total Protein 6.3 g/dL (6.6-8.7) L 07/09/24 22:10 Albumin 3.8 g/dL (3.5-5.2) 07/09/24 22:10 Globulin 2.5 g/dL (1.3-4.6) 07/09/24 22:10 All radiology interpretation(s) finalized by discharge Discharge Plan Discharge Patient Disposition: Home Clinical Impression: Atypical chest pain Condition: Stable Prescriptions: No Action gabapentin 600 mg tablet 600 mg PO DAILY PRN (Reason: NERVE PAIN) All Day Allergy (cetirizine) 10 mg capsule 10 mg PO DAILY PRN (Reason: Allergy Symptoms) budesonide-formoterol [Symbicort] 160-4.5 mcg/actuation HFA aerosol inhaler 2 puff inhalation Q12H fluticasone propionate 50 mcg/actuation spray,suspension 1 spray intranasal DAILY Rx Instructions: administer into each nostril glimepiride 4 mg tablet 4 mg PO BID atenolol 50 mg tablet 25 mg PO DAILY fluoxetine 20 mg capsule 20 mg PO DAILY methenamine hippurate 1 gram tablet 1 g PO BID Qty: 60 12RF Rx Instructions: Take 1000 mg of vitamin C with each dose of methenamine amlodipine 2.5 mg tablet 2.5 mg PO DAILY 30 Days Qty: 90 3RF latanoprost 0.005 % drops 1 drp ophthalmic (eye) BEDTIME Vitamin C 1,000 mg Tablet 1,000 mg PO BID brimonidine 0.2 % drops 1 drp ophthalmic (eye) BID dorzolamide-timolol 22.3-6.8 mg/mL drops 1 drp ophthalmic (eye) BID Ventolin HFA 90 mcg/actuation HFA aerosol inhaler 2 inh INHALATION Q4H PRN (Reason: Shortness Of Breath) atorvastatin 40 mg tablet 40 mg PO QPM tamsulosin 0.4 mg capsule 0.4 mg PO DAILY zolpidem 10 mg tablet 10 mg PO BEDTIME Discharge Orders: Discharge ED (Routine); Ordered 07/10/24 Ordered By: Esvin Huddleston Referrals: Oscar Bell [Primary Care Provider] - 1 week Patient Instructions: Chest Pain - Noncardiac Activity Restrictions/Additional Instructions: Thank you for choosing [facility] for your healthcare needs today. Please realize that you were seen in the emergency department and that we are providing you with an emergency medical screening exam and this may not be a complete and all exclusive of all testing and/or medical workup we may need to determine your element or severity of your illness. It is very important that you follow-up as instructed with your primary care provider or specialist for the additional evaluation and to discuss your medical treatment plan. You may return to the emergency department should you have concerns or if your condition changes or worsens in any way. Coding Level of Care Code ED Skoog Operator for Carlos Neff
[2024-07-09 22:47] LABS: Troponin(5th) Baseline 8 ng/L (0-10)
[2024-07-09 22:53] LABS: Alanine Aminotransferase 20 U/L (0-33); Albumin Level 3.8 g/dL (3.5-5.2); Alkaline Phosphatase 155 U/L (35-105); Anion Gap 16.1 (5-19); Aspartate Amino Transferase 18 U/L (0-32); Blood Urea Nitrogen 16 mg/dL (8-23); Calcium 8.8 mg/dL (8.5-10.5); Carbon Dioxide 24 mmol/L (22-29); Chloride 103 mmol/L (98-107); Creatinine Clr Calc Pharmacy 69.4594; Globulin 2.5 g/dL (1.3-4.6); Glomerular Filtration Rate 84.2 mL/min (90-130); Glucose 193 mg/dL (65-115); Osmolality Calculated 294 mOsm/kg (285-295); Potassium 4.1 mmol/L (3.5-5.1); Sodium 139 mmol/L (136-145); Total Bilirubin 0.5 mg/dL (0.15-1.2); Total Protein 6.3 g/dL (6.6-8.7)
[2024-07-09 23:21] VITALS: RESP 17; O2SAT 96
[2024-07-09] MEDS: ketorolac 30 mg/mL INJ IVP (23:28)
--- NOTE | 2024-07-09 23:57 | ECG_ITS ---
[employer] 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1960 Requested By: Esvin Huddleston Order Number: [id number] Carmen MD: LOVE LARSEN Measurements Intervals [place] Rate: 73 P: 33 [place]: 130 QRS: 12 QRSD: 98 T: 45 QT: 406 QTc: 448 Interpretive Statements SINUS RHYTHM INCOMPLETE RIGHT BUNDLE BRANCH BLOCK [90+ ms QRS DURATION, TERMINAL R IN V1/V2, 40+ ms S IN I/aVL/V4/V5/V6] Compared to ECG 08/21/2023 13:40:56 Incomplete right bundle-branch block now present Sinus tachycardia no longer present Short [place] interval no longer present T-wave abnormality no longer present Electronically Signed On 07-09-2024 23:31:15 [employer]ITE W[employer] PILER by LOVE LARSEN [email or web address]
[2024-07-10 00:45] VITALS: PULSE 71
[2024-07-10 01:10] LABS: Troponin 5 2HR 8.69 ng/L (0-10); Troponin 5 2HR Delta 0.69 ABS# (0-10)
[2024-07-10 03:02] VITALS: BP 107/66; PULSE 70; O2SAT 97
== END 2024-07-10 03:06 | disposition home or self-care (01) ==
PROVIDERS: Emergency Provider Emergency Medicine; PCP Family Medicine
DX: R07.89 Other chest pain (principal); J44.9 Chronic obstructive pulmonary disease, unspecified; E11.42 Type 2 diabetes mellitus with diabetic polyneuropathy; E78.5 Hyperlipidemia, unspecified; Z86.73 Personal history of transient ischemic attack (TIA), and cerebral infarction without residual deficits
CPT/HCPCS: 36415; 71045; 80053; 84484; 85025; 93005; 96374; 99285; J1885